=== PATIENT | male | born 1940 | race Caucasian/White ===

== ENCOUNTER → 2017-12-03 | Outpatient (CLI) | payer OTHER, MEDICARE ==
--- NOTE | 2017-12-03 13:54 | RAD ---
PA AND LATERAL VIEWS OF THE CHEST: HISTORY: Dyspnea. FINDINGS: Comparison is made with the exam of 01/28/17. The heart size is normal. Changes of COPD are again seen. No confluent areas of consolidation, pneu mothorax, or pleural effusions are identified. There are degenerative changes in the spine. Postop changes and metallic hardware in the left proximal humerus are again seen. IMPRESSION: No radiographic evidence of acute cardiopulmonary process. POS: [facility]
== END ==
LOC: RAD 10:26
PROVIDERS: ATTEND Internal Medicine
DX: R06.00 Dyspnea, unspecified (principal)
CPT/HCPCS: 71046

== ENCOUNTER 2018-09-16 10:40 | Inpatient (IN) | payer MEDICARE, OTHER ==
[2018-09-16 11:09] LABS: #Basophils 0.1 thou/uL (0.0-0.2); #Eosinphils 0.6 thou/uL (0.0-0.7); #Lymphocytes 1.9 thou/uL (1.20-3.40); #Monocytes 0.6 thou/uL (0.11-0.59); #Neutrophils 7.8 thou/uL (1.40-6.50); %Basophils 0.7 % (0.0-1.0); %Eosinophils 5.1 % (0.0-10.0); %Lymphocytes 17.8 % (21.0-51.0); %Monocytes 5.1 % (0.0-10.0); %Neutrophils 71.2 % (42.0-75.0); Hemoglobin 16.6 g/dL (14.0-18.0); Mean Corpuscular HGB CONC 32.2 g/dL (32.0-36.0); Mean Corpuscular Hemoglobin 30.2 pg (27.0-31.0); Mean Corpuscular Volume 93.8 fL (78.0-98.0); Mean Platelet Volume 7.7 fL (7.4-10.4); Platelet Count 326 thou/uL (130-400); RBC Distribution Width 13.9 % (11.5-14.5); Red Blood Cell (RBC) Count 5.51 mill/uL (4.70-6.10); White Blood Cell (WBC) Count 10.9 thou/uL (4.8-10.8)
[2018-09-16 11:32] LABS: ALT (SGPT) 23 U/L (8-55); AST (SGOT) 26 U/L (5-34); Albumin 4.3 g/dL (3.4-4.8); Alkaline Phosphatase 104 U/L (40-150); Anion Gap 19 mmol/L (10-20); BUN (Urea Nitrogen) 27 mg/dL (8.4-25.7); Bilirubin, Total 0.8 mg/dL (0.2-1.2); Calc. Creatinine Clearance 0 mL/min (70-130); Calcium 10.3 mg/dL (7.8-10.44); Carbon Dioxide 24 mmol/L (23-31); Chloride 99 mmol/L (98-107); Estimated GFR-MDRD 51; Globulin 2.6 g/dL (2.4-3.5); Glucose 79 mg/dL (83-110); Potassium 5.2 mmol/L (3.5-5.1); Protein, Total 6.9 g/dL (5.8-8.1); Sodium 137 mmol/L (136-145)
--- NOTE | 2018-09-16 11:41 | RAD ---
TWO VIEW CHEST SERIES: Comparison: 12-03-17 FINDINGS: Lungs are hyperinflated with interstitial prominence. Cardiac silhouette is normal in size. There is vascular calcification. Osseous degenerative changes and thoracic kyphosis are similar. IMPRESSION: 1. COPD. 2. No significant interval change. POS: [facility]
[2018-09-16] MEDS ORDERED: methylPREDNISolone Sod Succ/PF 125 MG/2 ML VIAL ONE (11:50)
[2018-09-16] MEDS ORDERED: Azithromycin 500 MG VIAL ONE (11:52)
[2018-09-16] MEDS ORDERED: Zolpidem Tartrate 5 MG TAB PO PRN (20:21)
[2018-09-16] MEDS ORDERED: Ondansetron PF 4 MG/2 ML Vial IVP PRN (20:21)
[2018-09-16] MEDS ORDERED: Acetaminophen 325 MG TAB PO PRN (20:21)
[2018-09-16] MEDS ORDERED: ALPRAZolam 0.25 MG TAB PO PRN (20:23)
--- NOTE | 2018-09-16 20:38 | PDOC.EVN ---
Event Note - Event Note Event Note: H&P [id number]
--- NOTE | 2018-09-16 21:04 | HP ---
CHIEF COMPLAINT: Shortness of breath. HISTORY OF PRESENT ILLNESS: This is a 78-year-old male, complaining of shortness of breath and hypoxia. The patient states that he has been having worsening shortness of breath for the past week and decided to come in. The patient states that he used to smoke a long time ago and was born with asthma; however, has not smoked in the recent years. Does not use oxygen at home at this point in time; however, does state that he has qualified in the past for p.r.n. oxygen. The patient stated that he had DuoNeb inhalers at home, which he used and did not help. The patient states that he otherwise has no other associated complaints at this point in time. Does admit to dyspnea on exertion as well as improvement upon rest. The patient otherwise was stable. No complaints at this point in time. The patient did receive DuoNeb and steroids as well as supplemental oxygen in the ER and stated that this helped him tremendously. The patient is seen and examined in the ER. No family at bedside. All questions answered. ALLERGIES: NO KNOWN DRUG ALLERGIES. MEDICATIONS: See MAR. REVIEW OF SYSTEMS: All systems reviewed, pertinent positives in HPI, otherwise negative. FAMILY HISTORY: Positive for diabetes and hypertension. SOCIAL HISTORY: Prior smoker. Social drinker. PHYSICAL EXAMINATION: VITAL SIGNS: Blood pressure was 135/88, respiratory rate of 20, O2 saturations of 100% on 3 L nasal cannula, and temperature of 98. GENERAL: The patient lying in bed with no acute discomfort. Occasionally coughing. HEENT: Pupils are equal, round, reactive to light and accommodation. Extraocular muscles intact. Oral cavity moist and pink. NECK: Supple, mobile, and nontender. Thyroid appreciated. RESPIRATORY: Reveals bilateral lower extremity inspiratory crackles, otherwise rest of the lung exam is clear to auscultation. Slight increase in AP diameter with mild respiratory distress. CARDIOVASCULAR: Reveals S1 and S2. Faint ejection murmur as well as a regular rate and rhythm. ABDOMEN: Positive bowel sounds. Soft, nontender, and nondistended. EXTREMITIES: Reveals trace edema. 2+ peripheral pulses. NEUROLOGIC: Cranial nerves 2 through 12 intact. No loss of motor or sensory function. LABORATORY DATA: CBC within normal limits. Basic metabolic panel within normal limits, albeit for creatinine being 1.35 and potassium of 3.2. The patient also had a chest x-ray done in the ER, which showed COPD changes, otherwise no acute cardiopulmonary process noted. ASSESSMENT: 1. Chronic obstructive pulmonary disease. 2. Hypertension. 3. Shortness of breath. 4. Anxiety. 5. Coronary artery disease. 6. Benign prostatic hyperplasia. PLAN: At this point in time, admit the patient hospital. Provide him with Rocephin or azithromycin. We will also do Solu-Medrol and steroids. Continue home medications as appropriate. Targeted systolic blood pressure 120 to 140. The patient wishes to remain a full code. Case and plan discussed with the patient at length. He understood and agreed to this plan. Job ID: [id number]
[2018-09-16] MEDS: Heparin 5,000 UNITS/ML VIAL SC SCH (23:35)
[2018-09-16] MEDS: cefTRIAXone\\ROCEPHIN 1 GM in Sodium Chloride 0.9% 100 ML IVPB SCH (23:35)
[2018-09-17] MEDS: methylPREDNISolone Sod Succ 40 MG VIAL IVP SCH ×4 (00:55→17:52)
[2018-09-17] MEDS ORDERED: Benzonatate 100 MG CAP PO PRN (04:02)
[2018-09-17 04:46] LABS: #Lymphocytes 0.7 thou/uL (1.20-3.40); #Monocytes 0.2 thou/uL (0.11-0.59); #Neutrophils 9.2 thou/uL (1.40-6.50); %Eosinophils 0.1 % (0.0-10.0); %Monocytes 1.8 % (0.0-10.0); %Neutrophils 91.1 % (42.0-75.0); Hemoglobin 14.6 g/dL (14.0-18.0); Mean Corpuscular HGB CONC 31.8 g/dL (32.0-36.0); Mean Corpuscular Hemoglobin 30.1 pg (27.0-31.0); Mean Corpuscular Volume 94.5 fL (78.0-98.0); Mean Platelet Volume 7.8 fL (7.4-10.4); Platelet Count 271 thou/uL (130-400); Red Blood Cell (RBC) Count 4.87 mill/uL (4.70-6.10); White Blood Cell (WBC) Count 10.1 thou/uL (4.8-10.8)
[2018-09-17 04:57] LABS: Anion Gap 14 mmol/L (10-20); BUN (Urea Nitrogen) 41 mg/dL (8.4-25.7); Calc. Creatinine Clearance 0 mL/min (70-130); Calcium 9.7 mg/dL (7.8-10.44); Carbon Dioxide 25 mmol/L (23-31); Chloride 103 mmol/L (98-107); Estimated GFR-MDRD 38; Glucose 235 mg/dL (83-110); Potassium 4.5 mmol/L (3.5-5.1); Sodium 137 mmol/L (136-145)
[2018-09-17 06:12] VITALS: BMI 27.1
[2018-09-17] MEDS: Finasteride 5 MG TAB PO SCH (09:13)
[2018-09-17] MEDS: Tamsulosin HCl 0.4 MG CAP PO SCH (09:13)
[2018-09-17] MEDS: Heparin 5,000 UNITS/ML VIAL SC SCH ×2 (09:13→21:45)
[2018-09-17] MEDS: Aspirin 81 mg Enteric Coated Tablet PO SCH (09:13)
[2018-09-17] MEDS: Amlodipine 5 MG TAB PO SCH (09:14)
[2018-09-17] MEDS: Azithromycin 500 MG in Sodium Chloride 0.9% 250 ML 250 ML IVPB SCH (13:33)
--- NOTE | 2018-09-17 13:38 | PDOC.PN ---
- Subjective Encounter Start Date: 09/17/18 Encounter Start Time: 13:36 Mr. Lin was seen today in follow-up of COPD exacerbation. He says he is feeling a little better, but when he walks he still gets very winded. He also informs be that his symptoms can be very labile. - Objective Resuscitation Status - Order Detail: 09/16/18 20:21 Resuscitation Status Routine Resuscitation Status: FULL: Full Resuscitation Discussed with: patient MAR Reviewed: Yes Vital Signs & Weight: Vital Signs (12 hours) Temp Pulse Resp BP Pulse Ox 09/17/18 12:00 97.6 F 83 18 156/72 H 94 L 09/17/18 09:14 82 09/17/18 08:00 98.4 F 82 18 168/71 H 92 L 09/17/18 04:00 97.7 F 71 16 138/64 93 L Weight Weight 178 lb 8 oz I&O: 09/16/18 09/17/18 09/18/18 06:59 06:59 06:59 Intake Total 300 Balance 300 Result Diagrams: 09/17/18 04:30 09/17/18 04:30 Phys Exam - Physical Examination HEENT: PERRLA Respiratory: wheezing present decreased air movement Cardiovascular: RRR, no significant murmur, no rub Gastrointestinal: soft, non-tender, no distention, positive bowel sounds Musculoskeletal: edema present trace pedal edema bilaterally Dx/Plan (1) Acute and chronic respiratory failure Code(s): J96.20 - ACUTE AND CHR RESP FAILURE, UNSP W HYPOXIA OR HYPERCAPNIA Status: Acute (2) COPD exacerbation Code(s): J44.1 - CHRONIC OBSTRUCTIVE PULMONARY DISEASE W (ACUTE) EXACERBATION Status: Acute (3) Hypertension Code(s): I10 - ESSENTIAL (PRIMARY) HYPERTENSION Status: Chronic (4) CAD (coronary artery disease) Code(s): I25.10 - ATHSCL HEART DISEASE OF [place] CORONARY ARTERY W/O ANG PCTRS Status: Chronic - Plan * COPD exacerbation- slightly improved- will continue the current regimen * Will consult his Assembler Installer Structures for further recommendations * CAD- stable * HTN- blood pressure is a bit elevated- he attributes this to the COPD exacerbation- will continue his home medications and add Hydralazine as needed.
[2018-09-17] MEDS ORDERED: hydrALAZINE 25 MG TAB PO PRN (13:43)
--- NOTE | 2018-09-17 17:11 | CON ---
DATE OF CONSULTATION: HISTORY OF PRESENT ILLNESS: This is a 78-year-old gentleman, who sees Dr. Gee, come to the hospital with several day history of increasing shortness of breath, cough, and some wheezing. He states at most days he can barely walk even 50 feet without getting markedly short of breath. Former smoker, quit smoking 5 years ago. Denies any chest pain, chills, or sweats. PAST MEDICAL HISTORY: Pertinent for end-stage COPD, former smoker, hypertension, and reflux. PAST SURGICAL HISTORY: Previous surgeries, appendix and left shoulder surgery. MEDICATIONS: Chronic medications from home includes; 1. DuoNeb. 2. Aspirin. 3. Amlodipine 5. 4. Albuterol inhaler. 5. Xanax 0.5. FAMILY HISTORY: Unremarkable. ALLERGIES: NONE. SOCIAL HISTORY: Tobacco as noted. Alcohol none. REVIEW OF SYSTEMS: Otherwise, 10-point negative. PHYSICAL EXAMINATION: GENERAL: In mild distress. VITAL SIGNS: Respirations are 18, pulse 73, temperature 97, saturations 94% on room air, and blood pressure 156/72. CHEST: Barrel-shaped, decreased breath sounds. No wheezing. CARDIAC: Sinus tach. ABDOMEN: Soft without masses. LABORATORY DATA: White count 10,000 and H and H are 14 and 46, and platelet count is normal. Creatinine 1.74. Chest x-ray shows hyperinflation. No acute infiltrate. IMPRESSION: Chronic obstructive pulmonary disease exacerbation, bronchitis, former smoker, azotemia, and hypertension. PLAN: I agree with present treatment at [facility]. Discontinue steroids and neb treatment. We will notify Dr. Gee. Consultation note, 70 minutes, 50% in direct patient care. Job ID: [id number]
[2018-09-17] MEDS: Mometasone/Formoterol 120 PUFF INHALER INH SCH (18:32)
[2018-09-17] MEDS: cefTRIAXone\\ROCEPHIN 1 GM in Sodium Chloride 0.9% 100 ML IVPB SCH (21:39)
[2018-09-18] MEDS: methylPREDNISolone Sod Succ 40 MG VIAL IVP SCH ×3 (01:09→11:51)
[2018-09-18] MEDS: Mometasone/Formoterol 120 PUFF INHALER INH SCH (06:52)
[2018-09-18] MEDS: Aspirin 81 mg Enteric Coated Tablet PO SCH (09:15)
[2018-09-18] MEDS: Amlodipine 5 MG TAB PO SCH (09:15)
[2018-09-18] MEDS: Finasteride 5 MG TAB PO SCH (09:18)
[2018-09-18] MEDS: Heparin 5,000 UNITS/ML VIAL SC SCH (09:18)
[2018-09-18] MEDS: Tamsulosin HCl 0.4 MG CAP PO SCH (09:19)
[2018-09-18 10:51] LABS: Anion Gap 10 mmol/L (10-20); BUN (Urea Nitrogen) 35 mg/dL (8.4-25.7); Calc. Creatinine Clearance 54 mL/min (70-130); Calcium 9.8 mg/dL (7.8-10.44); Carbon Dioxide 29 mmol/L (23-31); Chloride 105 mmol/L (98-107); Estimated GFR-MDRD 55; Glucose 140 mg/dL (83-110); Potassium 4.4 mmol/L (3.5-5.1); Sodium 140 mmol/L (136-145)
[2018-09-18] MEDS: Azithromycin 500 MG in Sodium Chloride 0.9% 250 ML 250 ML IVPB SCH (13:17)
--- NOTE | 2018-09-18 15:08 | PDOC.PN ---
- Subjective Encounter Start Date: 09/18/18 Encounter Start Time: 15:07 Mr. Lin was seen today in follow-up of COPD exacerbation. He feels he is breathing a bit better. He has walked in the halls without difficulty. - Objective Resuscitation Status - Order Detail: 09/16/18 20:21 Resuscitation Status Routine Resuscitation Status: FULL: Full Resuscitation Discussed with: patient MAR Reviewed: Yes Vital Signs & Weight: Vital Signs (12 hours) Temp Pulse Resp BP BP Pulse Ox 09/18/18 12:00 97.9 F 70 20 162/74 H 94 L 09/18/18 09:15 74 155/70 H 09/18/18 08:00 97.8 F 74 20 155/70 H 94 L 09/18/18 06:53 93 L 09/18/18 06:52 73 16 93 L 09/18/18 04:00 97.4 F L 68 16 132/69 94 L Weight Weight 178 lb 8 oz I&O: 09/17/18 09/18/18 09/19/18 06:59 06:59 06:59 Intake Total 300 1500 Balance 300 1500 Result Diagrams: 09/17/18 04:30 09/18/18 10:24 Phys Exam - Physical Examination HEENT: PERRLA Respiratory: no wheezing, no rales, no rhonchi, clear to auscultation bilateral Cardiovascular: RRR, no significant murmur, no rub Gastrointestinal: soft, non-tender, no distention, positive bowel sounds Musculoskeletal: no edema Dx/Plan (1) Acute and chronic respiratory failure Code(s): J96.20 - ACUTE AND CHR RESP FAILURE, UNSP W HYPOXIA OR HYPERCAPNIA Status: Acute (2) COPD exacerbation Code(s): J44.1 - CHRONIC OBSTRUCTIVE PULMONARY DISEASE W (ACUTE) EXACERBATION Status: Acute (3) Hypertension Code(s): I10 - ESSENTIAL (PRIMARY) HYPERTENSION Status: Chronic (4) CAD (coronary artery disease) Code(s): I25.10 - ATHSCL HEART DISEASE OF [place] CORONARY ARTERY W/O ANG PCTRS Status: Chronic - Plan * Acute on chronic respiratory failure due to COPD exacerbation- continue Steroids, duonebs, and Dulera * Continue Azithromycin and Rocephin * Await further recommendations from Dr. Gee. * HTN- blood pressure is a bit elevated- patient says he does not take Amlodipine however- ? home medication * Renal function is better today
[2018-09-18 16:25] VITALS: BP 119/58; TEMP 97.8
--- NOTE | 2018-09-18 18:19 | PRG ---
DATE OF SERVICE: 09/18/2018 SUBJECTIVE: Mr. Lin did well overnight. He is in no distress. He says he is back near his baseline. He hates being in the hospital. OBJECTIVE: VITAL SIGNS: His vital signs are stable. LUNGS: His lungs are actually clear. HEART: Regular rhythm, S1 and S2 are normal. ABDOMEN: Soft and nontender. EXTREMITIES: Without edema. IMPRESSION: 1. Chronic obstructive pulmonary disease exacerbation. 2. Bronchitis. PLAN: I think it is reasonable for him to go home. I wrote a prescription for Ceftin 250 b.i.d. for seven days and prednisone 20 mg tablets to take two tablets for 5 days and one tablet for 8 days and then half tablet for 8 more days after that. I have asked him to call my office and make an appointment for 2-3 weeks from now. I have refilled his prescription for his ipratropium and albuterol for his nebulizer and written the prescription q.4 hours, so have enough for the bad days if he has to use more than just four times a day by mouth. Job ID: [id number]
--- NOTE | 2018-09-19 03:02 | DIS ---
DATE OF ADMISSION: 09/16/2018 DATE OF DISCHARGE: 09/18/2018 DISCHARGE DISPOSITION: Home. PRIMARY DISCHARGE DIAGNOSES: 1. Chronic obstructive pulmonary disease exacerbation. 2. Acute on chronic respiratory failure secondary to #1. 3. Hypertension. 4. Benign prostatic hyperplasia. DISCHARGE MEDICATIONS: Include; 1. Ceftin 250 mg twice daily. 2. Aspirin 81 mg daily. 3. Alprazolam 0.25 mg t.i.d. as needed. 4. Ventolin inhaler 2 puffs q.6h as needed. CODE STATUS: Full code. ALLERGIES: NO KNOWN DRUG ALLERGIES. HOSPITAL COURSE: Mr. Lin is a pleasant 78-year-old gentleman who presented to the emergency room complaining of shortness of breath. He has a history of COPD. He was evaluated in the ER and found to be in COPD exacerbation. Chest x-ray was negative for any infiltrates. He was admitted, started on empiric antibiotics as well as DuoNebs and steroids and a long-acting beta agonist. He improved over the course of the next couple of days. He was also seen by his tractor sweeper operator as well. No significant changes were made in his medications and after he was stabilized, he was able to be discharged home and to have close outpatient followup with his tractor sweeper operator as well as his primary care physician in 1 to 2 weeks. Job ID: [id number]
== END 2018-09-18 16:35 | disposition home or self-care (01) | DRG 190 ==
LOC: ERS 10:40 → ERHOLD 17:08 → OBSVTOIN 17:08 → ONC 09-17 00:26
PROVIDERS: ADMIT Family Medicine; ATTEND Family Medicine
DX: J44.1 Chronic obstructive pulmonary disease with (acute) exacerbation (principal); J96.20 Acute and chronic respiratory failure, unspecified whether with hypoxia or hypercapnia; I10 Essential (primary) hypertension; F41.9 Anxiety disorder, unspecified; I25.10 Atherosclerotic heart disease of native coronary artery without angina pectoris; N40.0 Benign prostatic hyperplasia without lower urinary tract symptoms; K21.9 Gastro-esophageal reflux disease without esophagitis; R79.89 Other specified abnormal findings of blood chemistry; Z87.891 Personal history of nicotine dependence; Z98.890 Other specified postprocedural states
CPT/HCPCS: 36415; 71046; 80048; 80053; 83880; 84484; 85025; 93005; 94640; 96365; 96366; 96375; J0456; J0696; J1644; J2920; J2930; J7050; J7620

== ENCOUNTER 2018-10-04 15:53 | Inpatient (IN) | payer MEDICARE ==
--- NOTE | 2018-10-04 16:19 | RAD ---
FRadiograph chest one view: 10/04/2018 HISTORY: 78-year-old male with cough and dyspnea. Sepsis alert. COMPARISON: 09/16/2018 FINDINGS: Hyperinflation of the lungs. Hyperlucency of upper and midlung zones. These represent COPD. No cardio megaly. No focal infiltrate or pneumothorax. No interval change. IMPRESSION: 1. Emphysema. 2. No evidence of acute pneumonia
[2018-10-04] MEDS ORDERED: Azithromycin 250 MG TAB ONE (16:28)
[2018-10-04] MEDS ORDERED: Magnesium 2 GM/50 ML BAG (IN WATER) ONE (16:28)
[2018-10-04 16:29] LABS: #Eosinphils 0.2 thou/uL (0.0-0.7); #Lymphocytes 1.2 thou/uL (1.20-3.40); #Monocytes 0.9 thou/uL (0.11-0.59); #Neutrophils 14.6 thou/uL (1.40-6.50); %Basophils 0.2 % (0.0-1.0); %Eosinophils 1.3 % (0.0-10.0); %Lymphocytes 7.3 % (21.0-51.0); %Monocytes 5.5 % (0.0-10.0); %Neutrophils 85.8 % (42.0-75.0); Mean Corpuscular HGB CONC 31.7 g/dL (32.0-36.0); Mean Corpuscular Hemoglobin 31.1 pg (27.0-31.0); Mean Corpuscular Volume 98.1 fL (78.0-98.0); Mean Platelet Volume 7.7 fL (7.4-10.4); Platelet Count 272 thou/uL (130-400); RBC Distribution Width 14.4 % (11.5-14.5); Red Blood Cell (RBC) Count 5.16 mill/uL (4.70-6.10)
[2018-10-04] MEDS ORDERED: Azithromycin 500 MG VIAL ONE (16:30)
[2018-10-04] MEDS ORDERED: Albuterol Sulfate 2.5 mg/0.5 ml Neb ONE ×2 (16:34)
[2018-10-04] MEDS ORDERED: Lorazepam 2 MG/ML VIAL ONE (16:38)
[2018-10-04 16:46] LABS: Bilirubin Small (Negative); Blood, Urine Large (Negative); Clarity CLEAR (Clear); Glucose, Urine (Dipstick) Negative (Negative); Leukocyte Small (Negative); Nitrite Negative (Negative); Protein, Urine (Dipstick) 100 mg/dL (Neg-Trace); Specific Gravity, Urine 1.027 (1.002-1.036)
[2018-10-04 16:48] LABS: Bacteria/HPF None Seen HPF (None Seen); Hyaline Casts/LPF 4-6 HYALINE CAST LPF (0-3 Hyaline); Pathc Cast-AUWi Flag 0.54 (0-2.49); Squamous Epithelial 0-3 HPF (0-3)
[2018-10-04 16:50] LABS: Base Excess-Venous -1.6 mmol/L (-2.0 to 3.0); Bicarbonate (HCO3v) 27.7 mmol/L (22.0-28.0); CO2 Tension (PvCO2) 62.4 mmHg (40.0-50.0); Calcium, Ionized 1.27 mmol/L (See Comments:); Chloride 102 mmol/L (98-107); Hemoglobin - Calc 18.8 g/dL (14.0-18.0); O2 Tension (PvO2) 24.3 mmHg (35.0-45.0); Potassium 4.9 mmol/L (3.5-5.1); Sodium 137 mmol/L (138-145); T. Carbon Dioxide 29.6 mmol/L (22.0-28.0); pH (Venous) 7.255 (7.320-7.430); vO2 Saturation-calc 33.3 % (60.0-85.0)
[2018-10-04 16:51] LABS: ALT (SGPT) 29 U/L (8-55); AST (SGOT) 18 U/L (5-34); Albumin 4.1 g/dL (3.4-4.8); Alkaline Phosphatase 85 U/L (40-150); Anion Gap 18 mmol/L (10-20); BUN (Urea Nitrogen) 19 mg/dL (8.4-25.7); Bilirubin, Total 1.2 mg/dL (0.2-1.2); Calc. Creatinine Clearance 0 mL/min (70-130); Calcium 10.4 mg/dL (7.8-10.44); Carbon Dioxide 25 mmol/L (23-31); Chloride 99 mmol/L (98-107); Estimated GFR-MDRD 68; Globulin 3.5 g/dL (2.4-3.5); Glucose 82 mg/dL (83-110); Potassium 5.2 mmol/L (3.5-5.1); Protein, Total 7.6 g/dL (5.8-8.1); Sodium 137 mmol/L (136-145)
[2018-10-04] MEDS ORDERED: Cefepime 2 GM VIAL ONE (17:02)
[2018-10-04 17:06] LABS: Transitional Epithelial 0-3 HPF (0-3)
[2018-10-04] MEDS ORDERED: Rocuronium Bromide 10 MG/ML (10ML VIAL) ONE (17:24)
[2018-10-04] MEDS ORDERED: Ketamine 50 MG/ML (10ML VIAL) ONE (17:24)
[2018-10-04] MEDS ORDERED: fentaNYL Citrate/PF 2,000 MCG in Sodium Chloride 0.9% 60 ML IV SCH (17:24)
[2018-10-04] MEDS ORDERED: methylPREDNISolone Sod Succ/PF 125 MG/2 ML VIAL ONE (17:26)
[2018-10-04] MEDS ORDERED: Fentanyl 100 MCG/2 ML VIAL ONE (17:37)
[2018-10-04 18:03] LABS: Analyzer IN Cardio ER; Base Excess (BEa) -9.3 mEq/L (-2.0 to +3.0); Calcium, Ionized 1.29 mmol/L (1.12-1.30); Carboxyhemoglobin (COHb) 1.3 gm% (0.0-3.0); Hemoglobin (Hb) 15.6 g/dL (14.0-18.0); Potassium - ABG Lab 4.46 mmol/L (3.70-5.30)
--- NOTE | 2018-10-04 18:03 | RAD ---
FRadiograph chest one view: 10/04/2018 Time: 5:42 PM Streaky: Status post intubation in 78-year-old male COMPARISON: 10/04/2018 at 4:06 PM FINDINGS: Endotracheal tube has been placed into the mid thoracic trachea. Enteric tube has been placed into th e esophagus and stomach, distal tip outside of the field of view. Nonspecific mildly increased attenu ation at left lung base, new or greater than on prior study. Rest of the lungs are grossly clear. Hyp erinflation consistent with COPD. No pneumothorax. IMPRESSION: 1. Interval intubation and esophagogastric tube placement. 2. Emphysema. 3. Nonspecific mild haziness at the left base.
[2018-10-04 18:04] LABS: CO2 Tension 92.8 mmHg (35.0-45.0); O2 Tension (PaO2) 45.8 mmHg (> 70.0); pH, Arterial 7.03 (7.35-7.45)
[2018-10-04 18:48] LABS: Troponin I 0.012 ng/mL (< 0.028)
[2018-10-04] MEDS ORDERED: Acetaminophen 650 MG Suppository PR PRN (18:56)
[2018-10-04] MEDS ORDERED: Bisacodyl 10 MG SUPP PR PRN (18:56)
[2018-10-04] MEDS ORDERED: CCU Electrolyte Replacement 1 EACH IVPB ONE (19:04)
[2018-10-04] MEDS ORDERED: Norepinephrine 8 MG/0.9% NS 250 ML IVPB PRN (19:04)
[2018-10-04] MEDS ORDERED: hydrALAZINE 20 MG/ML VIAL SLOW IVP PRN (19:06)
[2018-10-04 19:09] LABS: Actual Bicarbonate (HCO3a) 19.1 mEq/L (22-28); Analyzer IN Cardio ER; Base Excess (BEa) -7.7 mEq/L (-2.0 to +3.0); CO2 Tension 43.5 mmHg (35.0-45.0); Calcium, Ionized 1.17 mmol/L (1.12-1.30); Carboxyhemoglobin (COHb) 0.8 gm% (0.0-3.0); Hemoglobin (Hb) 14.5 g/dL (14.0-18.0); Potassium - ABG Lab 4.01 mmol/L (3.70-5.30); Puncture Site RRA; pH, Arterial 7.26 (7.35-7.45)
[2018-10-04 19:10] LABS: ALV-art Gradient 123.325 (0-20)
[2018-10-04] MEDS ORDERED: Potassium Phosphate 12 MMOL in Sodium Chloride 0.9% 250 ML 250 ML IV PRN (19:16)
[2018-10-04] MEDS ORDERED: Potassium Chloride 40 MEQ in Sodium Chloride 0.9% 250 ML 250 ML IVPB PRN (19:16)
[2018-10-04] MEDS ORDERED: Potassium Phosphate 9 MMOL in Sodium Chloride 0.9% 100 ML IVPB PRN (19:16)
[2018-10-04] MEDS ORDERED: Potassium Phosphate 15 MMOL in Sodium Chloride 0.9% 250 ML 250 ML IV PRN (19:16)
[2018-10-04] MEDS ORDERED: Magnesium Oxide 400 MG TAB PO PRN ×2 (19:16)
[2018-10-04] MEDS ORDERED: PHOS-NAK 1 PKT PACK PO PRN ×2 (19:16)
[2018-10-04] MEDS ORDERED: Potassium Chloride 20 MEQ TAB PO PRN (19:16)
[2018-10-04] MEDS ORDERED: CCU ELECTROLYTE REPLACEMENT PROTOCOL FS PRN (19:16)
[2018-10-04] MEDS ORDERED: Magnesium 2 GM/50 ML 2 GM in Premix Bag 1 BAG IVPB PRN (19:16)
[2018-10-04] MEDS ORDERED: Potassium Chloride 40 MEQ in Premix Bag 1 BAG IVPB PRN (19:16)
[2018-10-04] MEDS ORDERED: Morphine 4 MG/ML VIAL ONE (19:43)
--- NOTE | 2018-10-04 19:54 | HP ---
PRIMARY CARE PROVIDER: None. Please note that Mr. Lin was seen by Dr. Ross, Dr. Townsend, and Dr. Tran in the past, but his daughter reports that he currently does not have a primary care provider. AUTOMOBILE TESTER: Dr. Gee. CHIEF COMPLAINT: Shortness of breath. HISTORY OF PRESENT ILLNESS: Mr. Lin is a pleasant 78-year-old gentleman, who was seen at [facility] on 10/04/2018. He was hospitalized at this facility from September 16 to of this year for COPD exacerbation and acute on chronic respiratory failure. Mr. Lin is currently intubated and mechanically ventilated, unable to provide any history. History was obtained from his daughter by the bedside. The patient's son, who is the medical power of corporate attorney, is on his way here from a different city. Following discharge, Mr. Lin was reportedly doing well. However, over the last few days, he has had cough, more than usual. The patient did not report to his family that he was feeling unwell. He reportedly had yellow sputum. He has been having generalized weakness as well, which he did not report to his family. He sought medical help today because of ongoing shortness of breath and cough. In the emergency room, he was found to be in acute on chronic respiratory failure by the emergency room physician. The patient was intubated after the emergency room physician discussed with the patient's son. REVIEW OF SYSTEMS: Could not be obtained. PAST MEDICAL HISTORY: COPD, anxiety, benign prostate hyperplasia, hypertension, and allergic rhinitis. PAST SURGICAL HISTORY: Appendectomy, left humeral fracture, and rib fracture. SOCIAL HISTORY: The patient is an ex-smoker, he quit smoking 5 years ago. He uses alcohol 2 times a week. No history of recreational drug use. FAMILY HISTORY: Significant for diabetes mellitus and hypertension. ALLERGIES: NO KNOWN DRUG ALLERGIES. CURRENT MEDICATIONS: 1. Aspirin 81 mg daily. 2. Alprazolam 0.25 mg 3 times a day as needed. 3. Ventolin inhaler 2 puffs every 6 hours as needed. PHYSICAL EXAMINATION: GENERAL: On examination, Mr. Lin is intubated and mechanically ventilated. VITAL SIGNS: Blood pressure is 176/91, pulse 97, respiratory rate 18, and oxygen saturation 100% on ventilator. Critical temperature is 99.3 degrees Fahrenheit. EYES: No scleral icterus, no conjunctival pallor. Pupils are 4 mm bilaterally, reactive to light. ENT: Endotracheal tube in place. NECK: No cervical lymphadenopathy. RESPIRATORY: Accessory muscles of breathing are not active. Chest wall movements are symmetric bilaterally. He has diffuse expiratory wheeze. CARDIOVASCULAR: S1 and S2 are heard, regular. Peripheral pulses palpable. No carotid bruit. No pericardial rub. ABDOMEN: Soft, nontender, bowel sounds heard. NEUROLOGIC: Full neurologic examination not possible secondary to the patient's noncooperation. Pupils as described earlier. There is no facial droop. MUSCULOSKELETAL: The patient is moving extremities and responds to painful stimuli. SKIN: No rashes or subcutaneous nodules. LYMPHATIC: No cervical lymphadenopathy. PSYCHIATRIC: Unable to assess mood, affect, or orientation to person, place, or time. LABORATORY DATA: Mr. Lin's labs and investigations were reviewed. A 12-lead electrocardiogram shows sinus tachycardia, no ST changes to suggest an acute coronary syndrome. He also had a chest x-ray, which shows emphysema and nonspecific mild haziness at the left base, according to radiologist. He has leukocytosis with 17,000 white cells, of which 85.8% are neutrophils, normal hemoglobin, normal platelet count, normal sodium, normal potassium, normal creatinine, unremarkable liver profile, elevated lactic acid level of 3.2, normal troponin I x2, urinalysis that is positive for small amount of leukocyte esterase, negative for nitrite, and arterial blood gases showing pH of 7.03, pCO2 of 92.8, and pO2 of 45.8. ASSESSMENT AND PLAN: Mr. Lin is a 78-year-old gentleman, who was seen at [facility] on October 04, 2018. His problem list includes: 1. Acute on chronic respiratory failure with hypoxia and hypercapnia: Mr. Lin is currently intubated and mechanically ventilated. He will be admitted to the CCU. Pulmonary and Critical Care Medicine Service has been notified by emergency room physician. Most likely etiology of respiratory failure is chronic obstructive pulmonary disease exacerbation. 2. Chronic obstructive pulmonary disease exacerbation: Mr. Lin will be treated with oxygen, steroids, bronchodilators, and antibiotics. 3. Hypertension: We will add p.r.n. hydralazine for blood pressure spikes, we will monitor vital signs and titrate antihypertensives as needed. 4. Benign prostate hyperplasia: The patient is currently not on any medications for this. I will need to confirm with family and restart his medications. LEVEL OF RISK: Severe. LEVEL OF COMPLEXITY: Moderate. Job ID: [id number]
[2018-10-04 20:23] LABS: Lactic Acid 1.2 mmol/L (0.5-2.2)
[2018-10-04 20:37] LABS: Troponin I 0.032 ng/mL (< 0.028)
[2018-10-04] MEDS: Lactated Ringer's 1,000 ML IV SCH (21:36)
[2018-10-04] MEDS: methylPREDNISolone Sod Succ 40 MG VIAL IVP SCH (23:40)
[2018-10-05] MEDS: Cefepime 2 GM in Sodium Chloride 0.9% 100 ML IVPB SCH ×2 (05:21→17:44)
[2018-10-05] MEDS: Lactated Ringer's 1,000 ML IV SCH ×2 (05:24→15:23)
[2018-10-05] MEDS: methylPREDNISolone Sod Succ 40 MG VIAL IVP SCH ×4 (05:25→23:09)
[2018-10-05 05:29] LABS: #Lymphocytes 0.5 thou/uL (1.20-3.40); #Monocytes 0.1 thou/uL (0.11-0.59); #Neutrophils 12.5 thou/uL (1.40-6.50); %Basophils 0.1 % (0.0-1.0); %Lymphocytes 3.5 % (21.0-51.0); %Monocytes 1.1 % (0.0-10.0); %Neutrophils 95.2 % (42.0-75.0); Hemoglobin 13.2 g/dL (14.0-18.0); Mean Corpuscular HGB CONC 32.4 g/dL (32.0-36.0); Mean Corpuscular Hemoglobin 31.2 pg (27.0-31.0); Mean Corpuscular Volume 96.5 fL (78.0-98.0); Mean Platelet Volume 8.1 fL (7.4-10.4); Platelet Count 212 thou/uL (130-400); RBC Distribution Width 14.2 % (11.5-14.5); Red Blood Cell (RBC) Count 4.23 mill/uL (4.70-6.10); White Blood Cell (WBC) Count 13.2 thou/uL (4.8-10.8)
[2018-10-05 05:51] LABS: Anion Gap 17 mmol/L (10-20); BUN (Urea Nitrogen) 28 mg/dL (8.4-25.7); Calc. Creatinine Clearance 50 mL/min (70-130); Calcium 8.8 mg/dL (7.8-10.44); Carbon Dioxide 19 mmol/L (23-31); Chloride 106 mmol/L (98-107); Estimated GFR-MDRD 50; Glucose 96 mg/dL (83-110); Sodium 137 mmol/L (136-145)
[2018-10-05 06:33] VITALS: BMI 27.1
[2018-10-05 09:13] LABS: Actual Bicarbonate (HCO3a) 20.2 mEq/L (22-28); Base Excess (BEa) -3.8 mEq/L (-2.0 to +3.0); CO2 Tension 33.8 mmHg (35.0-45.0); Calcium, Ionized 1.22 mmol/L (1.12-1.30); Carboxyhemoglobin (COHb) 1.1 gm% (0.0-3.0); Hemoglobin (Hb) 13.1 g/dL (14.0-18.0); O2 Tension (PaO2) 69.4 mmHg (> 70.0); Potassium - ABG Lab 4.22 mmol/L (3.70-5.30)
[2018-10-05 09:20] LABS: Puncture Site RRA
[2018-10-05] MEDS: Enoxaparin Sodium 40 MG/0.4 ML SYRINGE SC SCH (13:35)
[2018-10-05] MEDS ORDERED: Azithromycin 500 MG in Sodium Chloride 0.9% 250 ML 250 ML IVPB SCH (17:00)
--- NOTE | 2018-10-05 17:58 | PDOC.PN ---
- Subjective Encounter Start Date: 10/05/18 Encounter Start Time: 09:40 Pt seen for followup re: acute respiratory failure with hypoxia and hypercapnia. Intubated but answering questions by nodding or shaking head and by writing. - Objective MAR Reviewed: Yes Vital Signs & Weight: Vital Signs (12 hours) Temp Pulse Resp BP Pulse Ox 10/05/18 16:00 98.8 F 93 L 10/05/18 13:50 80 21 H 96 10/05/18 13:34 66 21 H 97 10/05/18 12:00 98.6 F 23 H 10/05/18 11:21 72 136/66 10/05/18 10:00 22 H 10/05/18 08:00 98.8 F 22 H 95 10/05/18 07:55 68 108/61 10/05/18 07:51 63 25 H 97 10/05/18 06:00 22 H Weight Weight 183 lb 6.793 oz Most Recent Monitor Data Heart Rate from ECG 76 NIBP 132/72 NIBP BP-Mean 92 Respiration from ECG 25 SpO2 94 I&O: 10/04/18 10/05/18 10/06/18 06:59 06:59 06:59 Intake Total 1305 0 Output Total 818 330 Balance 487 -330 Result Diagrams: 10/05/18 04:48 10/05/18 04:48 EKG Reviewed by me: Yes (Tele: NSR) Phys Exam - Physical Examination Intubated HEENT: moist MMs ETT Respiratory: clear to auscultation bilateral Cardiovascular: RRR Gastrointestinal: soft Neurological: moves all 4 limbs Psychiatric: normal affect Dx/Plan (1) Acute on chronic respiratory failure with hypoxia and hypercapnia Code(s): J96.21 - ACUTE AND CHRONIC RESPIRATORY FAILURE WITH HYPOXIA; J96.22 - ACUTE AND CHRONIC RESPIRATORY FAILURE WITH HYPERCAPNIA Status: Acute Comment : Improved (2) COPD exacerbation Code(s): J44.1 - CHRONIC OBSTRUCTIVE PULMONARY DISEASE W (ACUTE) EXACERBATION Status: Acute Comment: continue oxygen, steroids, bronchodilators and antibiotics as below (3) Hypertension Code(s): I10 - ESSENTIAL (PRIMARY) HYPERTENSION Status: Chronic - Plan * . Review of Systems - Review of Systems Constitutional: negative: fever, chills, sweats, weakness, malaise Cardiovascular: negative: chest pain, palpitations, orthopnea, paroxysmal nocturnal dyspnea, edema, light headedness - Medications/Allergies Allergies/Adverse Reactions: Allergies Allergy/AdvReac Type Severity Reaction Status Date / Time No Known Allergies Allergy Verified 11/11/16 14:23 Medications: Current Medications Acetaminophen (Tylenol) 650 mg ME Q4H PRN PRN Reason: Headache/Fever/Mild Pain (1-3) Albuterol/Ipratropium (Duoneb) 3 ml NEB [id number] TIMI Last Admin: 10/05/18 13:34 Dose: 3 ml Albuterol/Ipratropium (Duoneb) 3 ml NEB [id number] PRN PRN Reason: SOB &/or Wheezing Bisacodyl (Dulcolax) 10 mg ME DAILYPRN PRN PRN Reason: Constipation Enoxaparin Sodium (Lovenox) 40 mg SC 0900 [facility] Last Admin: 10/05/18 13:35 Dose: 40 mg Hydralazine HCl (Apresoline) 10 mg SLOW IVP Q6H PRN PRN Reason: SBP Greater Than 170 Fentanyl Citrate 2,000 mcg/ (Sodium Chloride) 100 mls @ 0 mls/hr IV INF TIMI; Protocol Stop: 11/03/18 17:24 Cefepime HCl 2 gm/ Sodium (Chloride) 100 mls @ 200 mls/hr IVPB 0500,1700 TIMI Last Admin: 10/05/18 17:44 Dose: 100 mls Azithromycin 500 mg/ Sodium (Chloride) 250 mls @ 250 mls/hr IVPB 1700 TIMI Norepinephrine Bitartrate (Levophed) 250 mls @ 0 mls/hr IVPB PRN PRN; Protocol PRN Reason: To maintain MAP > 65 Potassium Chloride 40 meq/ (Sodium Chloride) 270 mls @ 135 mls/hr IVPB ASDIR PRN PRN Reason: FOR SERUM K+ 2.5 - 3.5 Potassium Chloride 40 meq/ (Device) 100 mls @ 50 mls/hr IVPB ASDIR PRN PRN Reason: FOR SERUM K+ 2.5 - 3.5 Magnesium Sulfate 1 gm/ Sodium (Chloride) 102 mls @ 102 mls/hr IV PRN PRN PRN Reason: MAG LEVEL 1.4 - 2.0 Magnesium Sulfate 2 gm/ Device 50 mls @ 50 mls/hr IVPB ASDIR PRN PRN Reason: MAGNESIUM < 1.4 Potassium Phosphate 9 mmol/ (Sodium Chloride) 103 mls @ 25.75 mls/hr IVPB ASDIR PRN PRN Reason: Phosphate 1.0-1.8 Potassium Phosphate 12 mmol/ (Sodium Chloride) 254 mls @ 63.5 mls/hr IV ASDIR PRN PRN Reason: Serum phosphate 0.5-0.9 Potassium Phosphate 15 mmol/ (Sodium Chloride) 255 mls @ 63.75 mls/hr IV ASDIR PRN PRN Reason: Serum Phos < 0.5 Lactated Ringer's (Lactated Ringer's) 1,000 mls @ 75 mls/hr IV .[id number] [facility] Last Admin: 10/05/18 15:23 Dose: 1,000 mls Magnesium Oxide (Magnesium Oxide) 400 mg PO BIDPRN PRN PRN Reason: FOR SERUM MAG 1.4 - 2.0 Magnesium Oxide (Magnesium Oxide) 800 mg PO PRN PRN PRN Reason: FOR SERUM MAG < 1.4 Methylprednisolone Sodium Succinate (Solu-Medrol) 40 mg IVP Q6HR [facility] Last Admin: 10/05/18 17:45 Dose: 40 mg Miscellaneous Medication (Phos-Nak) 1 pkt PO TIDPRN PRN PRN Reason: FOR PHOS LEVEL 1.0 - 1.8 Miscellaneous Medication (Phos-Nak) 2 pkt PO TIDPRN PRN PRN Reason: FOR PHOS LEVEL 0.5 - 1.0 Ccu Electrolyte (Replacement Protocol) 0 each FS PRN PRN PRN Reason: FOR ELECTROLYTE REPLACEMENT Potassium Chloride (K-Dur) 40 meq PO ASDIR PRN PRN Reason: FOR SERUM K+ 2.5 - 3.5 Potassium Chloride (Klor-Con) 40 meq PER TUBE ASDIR PRN PRN Reason: FOR SERUM K+ 2.5-3.5 Sodium Chloride (Flush - Normal Saline) 10 ml IVF Q12HR [facility] Last Admin: 10/05/18 13:16 Dose: 10 ml Sodium Chloride (Flush - Normal Saline) 10 ml IVF PRN PRN PRN Reason: Saline Flush
--- NOTE | 2018-10-05 21:02 | CON ---
DATE OF CONSULTATION: 10/05/2018 HISTORY OF PRESENT ILLNESS: Mr. Raj Lin is a very pleasant 78-year-old male, patient of mine who has severe chronic obstructive pulmonary disease. He presented to the emergency room short of breath on CPAP. He eventually required intubation. It is unclear whether or not he actually did not do well with the CPAP, because of the positive airway pressure, which led to a decline. In any event, he is awake, alert, and has a surprisingly short expiratory time. He wants the tube out, which I completely understand. He denies fever prior to this, but said he has had a cough and chest congestion for several days. PAST MEDICAL HISTORY: 1. Remarkable for anxiety. 2. BPH. 3. Hypertension. 4. Rhinitis. 5. Chronic obstructive pulmonary disease. 6. Status post hospitalization last month with chronic obstructive pulmonary disease exacerbation. 7. Status post hospitalization last summer with chronic obstructive pulmonary disease exacerbation. 8. Status post surgical repair of a humerus fracture in June 15. 9. Long history of tobacco use up to a pack a day. 10. History of BPH. 11. History of GI bleed in the past. 12. History of heavy alcohol use in the past. He is abstinent now, but he used to drink 20-30 beers a day. FAMILY HISTORY: Negative for lung disease in early age. Positive for diabetes hypertension. SOCIAL HISTORY: He is not smoking at this time and drinks anywhere near as about same and he is only drinking twice a week now. PHYSICAL EXAMINATION: GENERAL: He is in no distress. VITAL SIGNS: Heart rate 68, respiratory rate 21, oximetry is 97, blood pressure 143/101 earlier, blood pressure is 138/80 now. The computer is not capturing vital signs. Pupils are equal, sclerae is anicteric. He is awake, alert. He has excellent strength. NECK: Supple. LUNGS: Clear. HEART: Regular rhythm. S1, S2 normal. ABDOMEN: Soft and nontender. EXTREMITIES: Without clubbing, cyanosis or edema. LABORATORY DATA: White count 13.2, hemoglobin 13.2, platelets 212. Sodium 137, potassium 5, chloride 106, bicarb 19, BUN 28, creatinine 1.37. PH 7.4, CO2 of 33, PO2 69 now. PH 7.03, CO2 of 92 on BiPAP. IMPRESSION: Respiratory failure, [id number], clinically dramatically improved surprisingly with less than 24 hours mechanical ventilation. He may be a candidate for weaning. If he meets criteria after spontaneous breathing trial, he will be re-evaluated and hopefully extubated. CRITICAL CARE TIME: 30 minutes. Job ID: [id number] MTDD
[2018-10-06] MEDS: methylPREDNISolone Sod Succ 40 MG VIAL IVP SCH ×4 (05:02→23:03)
[2018-10-06] MEDS: Cefepime 2 GM in Sodium Chloride 0.9% 100 ML IVPB SCH (05:03)
[2018-10-06] MEDS: Lactated Ringer's 1,000 ML IV SCH (05:05)
[2018-10-06 05:50] LABS: #Lymphocytes 0.6 thou/uL (1.20-3.40); #Monocytes 0.3 thou/uL (0.11-0.59); #Neutrophils 10.8 thou/uL (1.40-6.50); %Basophils 0.1 % (0.0-1.0); %Eosinophils 0.1 % (0.0-10.0); %Lymphocytes 4.7 % (21.0-51.0); %Monocytes 2.5 % (0.0-10.0); %Neutrophils 92.7 % (42.0-75.0); Hemoglobin 12.4 g/dL (14.0-18.0); Mean Corpuscular HGB CONC 32.5 g/dL (32.0-36.0); Mean Corpuscular Hemoglobin 31.4 pg (27.0-31.0); Mean Corpuscular Volume 96.8 fL (78.0-98.0); Mean Platelet Volume 7.6 fL (7.4-10.4); Platelet Count 196 thou/uL (130-400); Red Blood Cell (RBC) Count 3.94 mill/uL (4.70-6.10); White Blood Cell (WBC) Count 11.7 thou/uL (4.8-10.8)
[2018-10-06 06:16] LABS: Anion Gap 11 mmol/L (10-20); BUN (Urea Nitrogen) 41 mg/dL (8.4-25.7); Calc. Creatinine Clearance 62 mL/min (70-130); Carbon Dioxide 25 mmol/L (23-31); Chloride 107 mmol/L (98-107); Estimated GFR-MDRD 63; Glucose 122 mg/dL (83-110); Potassium 4.2 mmol/L (3.5-5.1); Sodium 139 mmol/L (136-145)
[2018-10-06] MEDS ORDERED: Bacteriostatic Water 30 ML VIAL FS PRN (08:04)
[2018-10-06] MEDS: Cefdinir 300 MG CAP PO SCH ×2 (08:30→20:01)
[2018-10-06] MEDS: Polyethylene Glycol 3350 17 GM Packet PO SCH (08:30)
[2018-10-06] MEDS: Enoxaparin Sodium 40 MG/0.4 ML SYRINGE SC SCH (08:31)
[2018-10-06] MEDS: ALPRAZolam 0.25 MG TAB PO PRN ×2 (09:27→20:01)
--- NOTE | 2018-10-06 11:01 | PQF ---
SHANNAN LUCIA MALIK MD [id number] CLINICAL DOCUMENTATION IMPROVEMENT CLARIFICATION FORM: ICD-10 Updated PLEASE DO AN ADDENDUM TO THE PROGRESS NOTE WITH ANY DOCUMENTATION UPDATES OR ADDITIONS AND CARRY THROUGH TO DC SUMMARY. THANK YOU. DATE: 10/06 ATTN: DR. DANIEL HENDERSON Please exercise your independent, professional judgment in responding to the clarification form. Clinical indicators are provided on the bottom of this form for your review. Please check appropriate box(es): [ ] Sepsis due to: (Pna, UTI, gangrenous gall bladder, etc.) [ ] Severe sepsis with acute organ dysfunction of: (Examples: respiratory failure, encephalopathy, acute kidney failure, other) [ ] Localized infection without sepsis [ ] Other diagnosis [ ] Unable to determine In addition, please specify: Present on Admission (POA): [ ] Yes [ ] No [ ] Unable to determine For continuity of documentation, please document condition throughout progress notes and discharge summary. Thank You. CLINICAL INDICATORS - SIGNS / SYMPTOMS / LABS ER PRESENTATION 10/04: SEPSIS ALERT RR: 18-34 HR: 88-130 BP: 174/129 PT REPORTS FVR: 103.0 INTUBATED: 10/04, 1731 WBC: 17.0 LACTIC ACID: 3.2 RISKS: SEVERE COPD W/EXACERBATION ACUTE ON CHRONIC RESPIRATORY FAILURE W/HYPOXIA & HYPERCAPNIA RESPIRATORY ACIDOSIS TREATMENT: IVF (2.5L NS IN ER); LR (10/04 - PRESENT) IV ANTIBIOTICS (CEFEPIME & AZITHROMYCIN IN ER) INTUBATION W/MECHANICAL VENTILATION (<24 HRS) THANK YOU! Ana (This form is maintained as a part of the permanent medical record) 2014 [employer]. All Rights Reserved Ana Agarwal, RN, BSN [email or web address] Office: [phone] [facility]
--- NOTE | 2018-10-06 11:48 | PRG ---
DATE OF SERVICE: 10/06/2018 SUBJECTIVE: Raj Lin is very talkative this morning. He is also very anxious. OBJECTIVE: VITAL SIGNS: He is afebrile. Heart rate 72, blood pressure 127/61, respiratory rates in the 20s. LUNGS: Lungs are remarkable for coarse equal breath sounds. He is not wheezing at this time. HEART: Regular rhythm. ABDOMEN: Soft and nontender. EXTREMITIES: Without edema. He is concerned because he has not had a bowel movement since he was extubated. I explained to him that he had a significant NG output, probably has some degree of an ileus at this point in time. White count today is 11.7, hemoglobin 12.4, platelets 196. Electrolytes normal. BUN 41, creatinine 1.12. IMPRESSION: 1. Respiratory failure associated with chronic obstructive pulmonary disease exacerbation. 2. Complaints of diarrhea alternating with constipation. He says he is trying to find a primary care doctor. 3. Severe anxiety. He is to go back on his alprazolam. 4. Deconditioning. 5. History of a gastrointestinal bleed. 6. History of 20-30 beers a day. Alcohol consumption abstinent now. We will restart his anxiolytics. We will continue steroids and nebulized treatments. He may benefit from MiraLAX, steroid dose be decreased. He is stable to move out of the critical care unit in my opinion. He can be treated with p.o. antimicrobial therapy since he has no pneumonia. This is a straightforward COPD exacerbation at this time. Job ID: [id number]
--- NOTE | 2018-10-06 21:47 | PDOC.PN ---
- Subjective Encounter Start Date: 10/06/18 Encounter Start Time: 11:00 Patient seen and examined for Resp failure. Cough +. No new complaints. No overnight events - Objective MAR Reviewed: Yes Vital Signs & Weight: Vital Signs (12 hours) Temp Pulse Resp Pulse Ox 10/06/18 19:44 81 32 H 98 10/06/18 19:21 97 10/06/18 19:00 98.4 F 10/06/18 15:00 98.1 F 10/06/18 13:26 80 24 H 97 10/06/18 11:00 98 F Weight Weight 181 lb 10.574 oz Most Recent Monitor Data Heart Rate from ECG 86 NIBP 144/79 NIBP BP-Mean 100 Respiration from ECG 28 SpO2 97 I&O: 10/05/18 10/06/18 10/07/18 06:59 06:59 06:59 Intake Total 1305 3128 1998 Output Total 818 1215 710 Balance 487 1913 1288 Result Diagrams: 10/07/18 04:14 10/07/18 04:14 EKG Reviewed by me: Yes (Tele SR) Phys Exam - Physical Examination Constitutional: NAD Respiratory: no wheezing B/L rhonchi Cardiovascular: RRR, no rub Gastrointestinal: soft, non-tender, positive bowel sounds Musculoskeletal: no edema Dx/Plan - Plan DVT proph w/SCDs 1. Acute hypoxic hypercapnic resp failure/COPD Exacerbation - s/p Mech Ventilation 2. Sepsis with acute organ dysfunction due to ?Pneumonia - suspected Pneumococcal 3. MUKESH/CKD 2 4. BPH 5. HTN/Anxiety 6. Hyperkalemia - resolved PLAN: Cont steroids/PO Atbx DC IVF - Patient tolerating PO well Confirm home meds Review of Systems - Review of Systems Cardiovascular: negative: chest pain, palpitations, orthopnea, paroxysmal nocturnal dyspnea, edema, light headedness, other Gastrointestinal: negative: Nausea, Vomiting, Abdominal Pain, Diarrhea, Constipation, Melena, Hematochezia, Other - Medications/Allergies Allergies/Adverse Reactions: Allergies Allergy/AdvReac Type Severity Reaction Status Date / Time No Known Allergies Allergy Verified 11/11/16 14:23 Medications: Current Medications Acetaminophen (Tylenol) 650 mg [place] Q4H PRN PRN Reason: Headache/Fever/Mild Pain (1-3) Albuterol/Ipratropium (Duoneb) 3 ml NEB [id number] [facility] Last Admin: 10/06/18 19:44 Dose: 3 ml Albuterol/Ipratropium (Duoneb) 3 ml NEB [id number] PRN PRN Reason: SOB &/or Wheezing Alprazolam (Xanax) 0.25 mg PO TIDPRN PRN PRN Reason: Anxiety Last Admin: 10/06/18 20:01 Dose: 0.25 mg Bisacodyl (Dulcolax) 10 mg [place] DAILYPRN PRN PRN Reason: Constipation Cefdinir (Omnicef) 300 mg PO BID [facility] Last Admin: 10/06/18 20:01 Dose: 300 mg Enoxaparin Sodium (Lovenox) 40 mg SC 0900 [facility] Last Admin: 10/06/18 08:31 Dose: 40 mg Hydralazine HCl (Apresoline) 10 mg SLOW IVP Q6H PRN PRN Reason: SBP Greater Than 170 Potassium Chloride 40 meq/ (Sodium Chloride) 270 mls @ 135 mls/hr IVPB ASDIR PRN PRN Reason: FOR SERUM K+ 2.5 - 3.5 Potassium Chloride 40 meq/ (Device) 100 mls @ 50 mls/hr IVPB ASDIR PRN PRN Reason: FOR SERUM K+ 2.5 - 3.5 Magnesium Sulfate 1 gm/ Sodium (Chloride) 102 mls @ 102 mls/hr IV PRN PRN PRN Reason: MAG LEVEL 1.4 - 2.0 Magnesium Sulfate 2 gm/ Device 50 mls @ 50 mls/hr IVPB ASDIR PRN PRN Reason: MAGNESIUM < 1.4 Potassium Phosphate 9 mmol/ (Sodium Chloride) 103 mls @ 25.75 mls/hr IVPB ASDIR PRN PRN Reason: Phosphate 1.0-1.8 Potassium Phosphate 12 mmol/ (Sodium Chloride) 254 mls @ 63.5 mls/hr IV ASDIR PRN PRN Reason: Serum phosphate 0.5-0.9 Potassium Phosphate 15 mmol/ (Sodium Chloride) 255 mls @ 63.75 mls/hr IV ASDIR PRN PRN Reason: Serum Phos < 0.5 Magnesium Oxide (Magnesium Oxide) 400 mg PO BIDPRN PRN PRN Reason: FOR SERUM MAG 1.4 - 2.0 Magnesium Oxide (Magnesium Oxide) 800 mg PO PRN PRN PRN Reason: FOR SERUM MAG < 1.4 Methylprednisolone Sodium Succinate (Solu-Medrol) 20 mg IVP Q6HR [facility] Last Admin: 10/06/18 18:07 Dose: 20 mg Miscellaneous Medication (Phos-Nak) 1 pkt PO TIDPRN PRN PRN Reason: FOR PHOS LEVEL 1.0 - 1.8 Miscellaneous Medication (Phos-Nak) 2 pkt PO TIDPRN PRN PRN Reason: FOR PHOS LEVEL 0.5 - 1.0 Ccu Electrolyte (Replacement Protocol) 0 each FS PRN PRN PRN Reason: FOR ELECTROLYTE REPLACEMENT Polyethylene Glycol (Miralax) 17 gm PO DAILY [facility] Last Admin: 10/06/18 08:30 Dose: 17 gm Potassium Chloride (K-Dur) 40 meq PO ASDIR PRN PRN Reason: FOR SERUM K+ 2.5 - 3.5 Potassium Chloride (Klor-Con) 40 meq PER TUBE ASDIR PRN PRN Reason: FOR SERUM K+ 2.5-3.5 Sodium Chloride (Flush - Normal Saline) 10 ml IVF Q12HR [facility] Last Admin: 10/06/18 20:01 Dose: 10 ml Sodium Chloride (Flush - Normal Saline) 10 ml IVF PRN PRN PRN Reason: Saline Flush
[2018-10-07 04:54] LABS: #Lymphocytes 0.5 thou/uL (1.20-3.40); #Monocytes 0.4 thou/uL (0.11-0.59); #Neutrophils 11.2 thou/uL (1.40-6.50); %Eosinophils 0.1 % (0.0-10.0); %Lymphocytes 4.3 % (21.0-51.0); %Neutrophils 92.6 % (42.0-75.0); Hemoglobin 11.3 g/dL (14.0-18.0); Mean Corpuscular Hemoglobin 30.7 pg (27.0-31.0); Mean Corpuscular Volume 96.1 fL (78.0-98.0); Mean Platelet Volume 7.6 fL (7.4-10.4); Platelet Count 204 thou/uL (130-400); White Blood Cell (WBC) Count 12.1 thou/uL (4.8-10.8)
[2018-10-07 05:08] LABS: Anion Gap 9 mmol/L (10-20); BUN (Urea Nitrogen) 36 mg/dL (8.4-25.7); Calc. Creatinine Clearance 78 mL/min (70-130); Carbon Dioxide 28 mmol/L (23-31); Chloride 106 mmol/L (98-107); Estimated GFR-MDRD 81; Glucose 130 mg/dL (83-110); Magnesium 2.4 mg/dL (1.6-2.6); Potassium 4.3 mmol/L (3.5-5.1); Sodium 139 mmol/L (136-145)
[2018-10-07] MEDS: methylPREDNISolone Sod Succ 40 MG VIAL IVP SCH ×3 (05:53→17:52)
[2018-10-07] MEDS: Cefdinir 300 MG CAP PO SCH (07:55)
[2018-10-07] MEDS: Polyethylene Glycol 3350 17 GM Packet PO SCH (07:55)
[2018-10-07] MEDS: Enoxaparin Sodium 40 MG/0.4 ML SYRINGE SC SCH (07:56)
[2018-10-07] MEDS ORDERED: Bisacodyl 5 MG TAB PO PRN (14:19)
--- NOTE | 2018-10-07 16:23 | PRG ---
DATE OF SERVICE: 10/07/2018 SUBJECTIVE: Raj Lin had no complaints today. He said he is feeling much better. OBJECTIVE: VITAL SIGNS: His heart rate is 80, respiratory rate is 20, oximetry is 99 on room air, and blood pressure 144/75. HEAD AND NECK: Unremarkable. LUNGS: Free of wheezes now. HEART: Regular rhythm. ABDOMEN: Soft. EXTREMITIES: Without asymmetry or edema. LABORATORY DATA: White count 12.1, hemoglobin 11.3, and platelets 204. Sodium 139, potassium 4.3, chloride 106, bicarb 28, BUN 36, and creatinine 0.9. He does have a nontender abdomen, but had not had bowel movement. He will be given a laxative. IMPRESSION: 1. Status post mechanical ventilation for chronic obstructive pulmonary disease exacerbation. 2. Anxiety, improved with p.r.n. alprazolam. 3. Constipation. He will be given a laxative. He has been taking MiraLAX and this did not work. He wants to establish contact with a liquid loader if this can be done as an outpatient. No acute GI issues at least at this time. 4. History of gastrointestinal bleed in the past. 5. History of alcohol in the past. He is very pleasant and cooperative. He is able be transferred out to a non-monitored bed. Job ID: [id number]
[2018-10-07] MEDS ORDERED: Sodium Chloride 0.9% 10 ML ONE (17:52)
--- NOTE | 2018-10-07 22:12 | PDOC.PN ---
- Subjective Encounter Start Date: 10/07/18 Encounter Start Time: 12:30 Patient seen and examined for Resp failure. SOB improving. No fever. Cough +. No new complaints. No overnight events - Objective MAR Reviewed: Yes Vital Signs & Weight: Vital Signs (12 hours) Temp Pulse Resp BP Pulse Ox 10/07/18 20:14 98.0 F 77 16 160/75 H 94 L 10/07/18 15:36 98.2 F 79 20 163/75 H 97 10/07/18 13:22 80 20 99 Weight Weight 184 lb 4.903 oz Most Recent Monitor Data Heart Rate from ECG 92 NIBP 144/75 NIBP BP-Mean 98 Respiration from ECG 26 SpO2 97 I&O: 10/06/18 10/07/18 10/08/18 06:59 06:59 06:59 Intake Total 3128 2198 1130 Output Total 1215 1145 1315 Balance 1913 1053 -185 Result Diagrams: 10/07/18 04:14 10/07/18 04:14 Phys Exam - Physical Examination Constitutional: NAD Respiratory: no rales Scat wheezing/rhonchi Cardiovascular: RRR, no rub Gastrointestinal: soft, non-tender, positive bowel sounds Musculoskeletal: no edema Dx/Plan - Plan DVT proph w/SCDs 1. Acute hypoxic hypercapnic resp failure/COPD Exacerbation - s/p Mech Ventilation 2. Sepsis with acute organ dysfunction due to ?Pneumonia - suspected Pneumococcal 3. MUKESH/CKD 2 - improving 4. BPH 5. HTN/Anxiety 6. Hyperkalemia - resolved PLAN: Cont current dose of steroids Cont PO Atbx Treat constipation Home meds to be verified. Review of Systems - Review of Systems Cardiovascular: negative: chest pain, palpitations, orthopnea, paroxysmal nocturnal dyspnea, edema, light headedness, other Gastrointestinal: negative: Nausea, Vomiting, Abdominal Pain, Diarrhea, Constipation, Melena, Hematochezia, Other - Medications/Allergies Allergies/Adverse Reactions: Allergies Allergy/AdvReac Type Severity Reaction Status Date / Time No Known Allergies Allergy Verified 11/11/16 14:23 Medications: Current Medications Acetaminophen (Tylenol) 650 mg [place] Q4H PRN PRN Reason: Headache/Fever/Mild Pain (1-3) Albuterol/Ipratropium (Duoneb) 3 ml NEB [id number] TIMI Last Admin: 10/07/18 19:05 Dose: 3 ml Albuterol/Ipratropium (Duoneb) 3 ml NEB [id number] PRN PRN Reason: SOB &/or Wheezing Alprazolam (Xanax) 0.25 mg PO TIDPRN PRN PRN Reason: Anxiety Last Admin: 10/06/18 20:01 Dose: 0.25 mg Bisacodyl (Dulcolax) 10 mg [place] DAILYPRN PRN PRN Reason: Constipation Bisacodyl (Dulcolax) 5 mg PO DAILY PRN PRN Reason: Constipation Last Admin: 10/07/18 14:36 Dose: 5 mg Cefdinir (Omnicef) 300 mg PO BID [facility] Last Admin: 10/07/18 07:55 Dose: 300 mg Enoxaparin Sodium (Lovenox) 40 mg SC 0900 [facility] Last Admin: 10/07/18 07:56 Dose: 40 mg Hydralazine HCl (Apresoline) 10 mg SLOW IVP Q6H PRN PRN Reason: SBP Greater Than 170 Potassium Chloride 40 meq/ (Sodium Chloride) 270 mls @ 135 mls/hr IVPB ASDIR PRN PRN Reason: FOR SERUM K+ 2.5 - 3.5 Potassium Chloride 40 meq/ (Device) 100 mls @ 50 mls/hr IVPB ASDIR PRN PRN Reason: FOR SERUM K+ 2.5 - 3.5 Magnesium Sulfate 1 gm/ Sodium (Chloride) 102 mls @ 102 mls/hr IV PRN PRN PRN Reason: MAG LEVEL 1.4 - 2.0 Magnesium Sulfate 2 gm/ Device 50 mls @ 50 mls/hr IVPB ASDIR PRN PRN Reason: MAGNESIUM < 1.4 Potassium Phosphate 9 mmol/ (Sodium Chloride) 103 mls @ 25.75 mls/hr IVPB ASDIR PRN PRN Reason: Phosphate 1.0-1.8 Potassium Phosphate 12 mmol/ (Sodium Chloride) 254 mls @ 63.5 mls/hr IV ASDIR PRN PRN Reason: Serum phosphate 0.5-0.9 Potassium Phosphate 15 mmol/ (Sodium Chloride) 255 mls @ 63.75 mls/hr IV ASDIR PRN PRN Reason: Serum Phos < 0.5 Magnesium Oxide (Magnesium Oxide) 400 mg PO BIDPRN PRN PRN Reason: FOR SERUM MAG 1.4 - 2.0 Magnesium Oxide (Magnesium Oxide) 800 mg PO PRN PRN PRN Reason: FOR SERUM MAG < 1.4 Methylprednisolone Sodium Succinate (Solu-Medrol) 20 mg IVP Q6HR [facility] Last Admin: 10/07/18 17:52 Dose: 20 mg Miscellaneous Medication (Phos-Nak) 1 pkt PO TIDPRN PRN PRN Reason: FOR PHOS LEVEL 1.0 - 1.8 Miscellaneous Medication (Phos-Nak) 2 pkt PO TIDPRN PRN PRN Reason: FOR PHOS LEVEL 0.5 - 1.0 Ccu Electrolyte (Replacement Protocol) 0 each FS PRN PRN PRN Reason: FOR ELECTROLYTE REPLACEMENT Polyethylene Glycol (Miralax) 17 gm PO DAILY [facility] Last Admin: 10/07/18 07:55 Dose: 17 gm Potassium Chloride (K-Dur) 40 meq PO ASDIR PRN PRN Reason: FOR SERUM K+ 2.5 - 3.5 Potassium Chloride (Klor-Con) 40 meq PER TUBE ASDIR PRN PRN Reason: FOR SERUM K+ 2.5-3.5 Sodium Chloride (Flush - Normal Saline) 10 ml IVF Q12HR [facility] Last Admin: 10/07/18 07:57 Dose: 10 ml Sodium Chloride (Flush - Normal Saline) 10 ml IVF PRN PRN PRN Reason: Saline Flush
[2018-10-07] MEDS ORDERED: DC Electrolyte Protocol FS ONE (23:36)
[2018-10-08] MEDS: methylPREDNISolone Sod Succ 40 MG VIAL IVP SCH ×5 (00:33→23:56)
[2018-10-08] MEDS: Cefdinir 300 MG CAP PO SCH ×3 (00:36→21:51)
[2018-10-08] MEDS: Famotidine 20 MG TAB PO SCH ×2 (09:31→21:52)
[2018-10-08] MEDS: Senokot S 8.6-50 MG TAB PO SCH ×2 (09:32→22:20)
[2018-10-08] MEDS: Enoxaparin Sodium 40 MG/0.4 ML SYRINGE SC SCH (09:32)
[2018-10-08] MEDS: Polyethylene Glycol 3350 17 GM Packet PO SCH (09:32)
[2018-10-08] MEDS: ALPRAZolam 0.25 MG TAB PO PRN ×2 (09:38→13:12)
--- NOTE | 2018-10-08 12:53 | PDOC.PN ---
- Subjective Encounter Start Date: 10/08/18 Encounter Start Time: 07:45 -: old records requested/rev Patient seen and examined. No new complaints. No overnight events per pt he is not ready for discharge today - Objective MAR Reviewed: Yes Vital Signs & Weight: Vital Signs (12 hours) Temp Pulse Resp BP Pulse Ox 10/08/18 11:37 98.1 F 77 24 H 181/79 H 94 L 10/08/18 07:52 97.6 F 68 24 H 153/69 H 93 L 10/08/18 07:46 80 16 98 10/08/18 04:00 97.8 F 70 20 127/60 96 10/08/18 00:52 80 16 99 Weight Weight 184 lb 4.903 oz Most Recent Monitor Data Heart Rate from ECG 92 NIBP 144/75 NIBP BP-Mean 98 Respiration from ECG 26 SpO2 97 I&O: 10/07/18 10/08/18 10/09/18 06:59 06:59 06:59 Intake Total 2198 1130 Output Total 1145 2065 Balance 1053 -935 Result Diagrams: 10/07/18 04:14 10/07/18 04:14 Phys Exam - Physical Examination Constitutional: NAD HEENT: PERRLA, moist MMs, sclera anicteric Neck: no JVD, supple Respiratory: no wheezing, no rales, no rhonchi reduced air entry Cardiovascular: RRR, no significant murmur, no rub Gastrointestinal: soft, non-tender, no distention, positive bowel sounds Musculoskeletal: no edema, pulses present Neurological: non-focal, normal sensation Lymphatic: no nodes Psychiatric: normal affect, A&O x 3 Skin: no rash, normal turgor Dx/Plan (1) COPD exacerbation Code(s): J44.1 - CHRONIC OBSTRUCTIVE PULMONARY DISEASE W (ACUTE) EXACERBATION Status: Acute Comment: (2) Acute respiratory failure with hypoxia and hypercapnia Code(s): J96.01 - ACUTE RESPIRATORY FAILURE WITH HYPOXIA; J96.02 - ACUTE RESPIRATORY FAILURE WITH HYPERCAPNIA Status: Acute (3) MUKESH (acute kidney injury) Code(s): N17.9 - ACUTE KIDNEY FAILURE, UNSPECIFIED Status: Resolved (4) BPH (benign prostatic hyperplasia) Code(s): N40.0 - BENIGN PROSTATIC HYPERPLASIA WITHOUT LOWER URINRY TRACT SYMP Status: Acute (5) CAD (coronary artery disease) Code(s): I25.10 - ATHSCL HEART DISEASE OF [place] CORONARY ARTERY W/O ANG PCTRS Status: Chronic (6) Hypertension Code(s): I10 - ESSENTIAL (PRIMARY) HYPERTENSION Status: Chronic - Plan cont current plan of care, plan discussed w/ family, continue antibiotics, PT/OT , social worker psychiatric, respiratory therapy * per pt he does not have home oxygen * will assess him for home oxygen and arrange if needed * he will think about going to rehab vs home today * medication reviewed as below * symptomatic treatment * overall stable and improving but per pt he is not baseline. Review of Systems - Review of Systems Constitutional: weakness. negative: fever, chills, sweats, malaise, other Respiratory: Cough, SOB with Excertion. negative: Dry, Shortness of Breath, Hemoptysis, Pleuritic Pain, Sputum, Wheezing Cardiovascular: negative: chest pain, palpitations, orthopnea, paroxysmal nocturnal dyspnea, edema, light headedness, other Gastrointestinal: negative: Nausea, Vomiting, Abdominal Pain, Diarrhea, Constipation, Melena, Hematochezia, Other Genitourinary: negative: Dysuria, Frequency, Incontinence, Hematuria, Retention , Other Musculoskeletal: negative: Neck Pain, Shoulder Pain, Arm Pain, Back Pain, Hand Pain, Leg Pain, Foot Pain, Other Skin: negative: Rash, Lesions, Wili, Bruising, Other - Medications/Allergies Allergies/Adverse Reactions: Allergies Allergy/AdvReac Type Severity Reaction Status Date / Time No Known Allergies Allergy Verified 11/11/16 14:23 Medications: Current Medications Acetaminophen (Tylenol) 650 mg [place] Q4H PRN PRN Reason: Headache/Fever/Mild Pain (1-3) Albuterol/Ipratropium (Duoneb) 3 ml NEB [id number] TIMI Last Admin: 10/08/18 07:46 Dose: 3 ml Albuterol/Ipratropium (Duoneb) 3 ml NEB [id number] PRN PRN Reason: SOB &/or Wheezing Alprazolam (Xanax) 0.25 mg PO TIDPRN PRN PRN Reason: Anxiety Last Admin: 10/08/18 09:38 Dose: 0.25 mg Bisacodyl (Dulcolax) 10 mg [place] DAILYPRN PRN PRN Reason: Constipation Bisacodyl (Dulcolax) 5 mg PO DAILY PRN PRN Reason: Constipation Last Admin: 10/07/18 14:36 Dose: 5 mg Cefdinir (Omnicef) 300 mg PO BID [facility] Last Admin: 10/08/18 09:32 Dose: 300 mg Enoxaparin Sodium (Lovenox) 40 mg SC 0900 [facility] Last Admin: 10/08/18 09:32 Dose: 40 mg Famotidine (Pepcid) 20 mg PO BID [facility] Last Admin: 10/08/18 09:31 Dose: 20 mg Hydralazine HCl (Apresoline) 10 mg SLOW IVP Q6H PRN PRN Reason: SBP Greater Than 170 Methylprednisolone Sodium Succinate (Solu-Medrol) 20 mg IVP Q6HR [facility] Last Admin: 10/08/18 07:20 Dose: 20 mg Polyethylene Glycol (Miralax) 17 gm PO DAILY [facility] Last Admin: 10/08/18 09:32 Dose: 17 gm Senna/Docusate Sodium (Senokot S) 2 tab PO BID [facility] Last Admin: 10/08/18 09:32 Dose: Not Given Sodium Chloride (Flush - Normal Saline) 10 ml IVF Q12HR [facility] Last Admin: 10/08/18 09:33 Dose: 10 ml Sodium Chloride (Flush - Normal Saline) 10 ml IVF PRN PRN PRN Reason: Saline Flush
--- NOTE | 2018-10-08 14:48 | PRG ---
DATE OF SERVICE: 10/08/2018 SUBJECTIVE: Riley is doing well. He has no complaints. He is told he have to go home with oxygen. That had not been determined yet. OBJECTIVE: VITAL SIGNS: He is afebrile. Heart rate 77, respiratory rate 24. He just walked and exercising with physical therapy. Dropped his sats down to about 83 on room air. He kept his sats over 90 on 2 L. His room air sat was, I believe over 90 prior to starting to walk or right at 90. LUNGS: Clear. HEART: Regular rhythm. ABDOMEN: Soft. IMPRESSION: Chronic obstructive pulmonary disease exacerbation with respiratory failure, requiring intubation. He is clinically improved. It is to be determined whether or not he will need oxygen and this only needs to be determined at discharge. We will see him in followup tomorrow and we will consider discharge in 24 to 48 hours. Job ID: [id number]
[2018-10-09] MEDS: methylPREDNISolone Sod Succ 40 MG VIAL IVP SCH ×3 (05:36→17:48)
[2018-10-09] MEDS: ALPRAZolam 0.25 MG TAB PO PRN (05:46)
[2018-10-09] MEDS: Senokot S 8.6-50 MG TAB PO SCH ×2 (08:30→20:51)
[2018-10-09] MEDS: Cefdinir 300 MG CAP PO SCH ×2 (08:30→20:50)
[2018-10-09] MEDS: Famotidine 20 MG TAB PO SCH ×2 (08:31→20:51)
[2018-10-09] MEDS: Polyethylene Glycol 3350 17 GM Packet PO SCH (08:31)
[2018-10-09] MEDS: Enoxaparin Sodium 40 MG/0.4 ML SYRINGE SC SCH (08:31)
--- NOTE | 2018-10-09 13:19 | PDOC.PN ---
- Subjective Encounter Start Date: 10/09/18 Encounter Start Time: 08:30 Patient seen and examined. No new complaints. No overnight events - Objective MAR Reviewed: Yes Vital Signs & Weight: Vital Signs (12 hours) Temp Pulse Resp BP BP Pulse Ox 10/09/18 12:15 91 L 10/09/18 11:55 97.6 F 78 22 H 144/65 H 94 L 10/09/18 11:06 86 16 94 L 10/09/18 09:45 93 L 10/09/18 08:30 95 10/09/18 08:20 98.1 F 72 24 H 161/76 H 95 10/09/18 08:01 80 16 93 L 10/09/18 05:48 97.7 F 66 20 155/66 H 96 Weight Weight 6.215 oz Most Recent Monitor Data Heart Rate from ECG 92 NIBP 144/75 NIBP BP-Mean 98 Respiration from ECG 26 SpO2 97 I&O: 10/08/18 10/09/18 10/10/18 06:59 06:59 06:59 Intake Total 1130 1520 Output Total 2065 700 Balance -935 820 Result Diagrams: 10/07/18 04:14 10/07/18 04:14 Phys Exam - Physical Examination Constitutional: NAD HEENT: PERRLA, moist MMs, sclera anicteric Neck: no JVD, supple Respiratory: no wheezing, no rales, no rhonchi Cardiovascular: RRR, no significant murmur, no rub Gastrointestinal: soft, non-tender, no distention, positive bowel sounds Musculoskeletal: no edema, pulses present Neurological: non-focal, normal sensation Lymphatic: no nodes Psychiatric: normal affect, A&O x 3 Skin: no rash, normal turgor Dx/Plan (1) COPD exacerbation Code(s): J44.1 - CHRONIC OBSTRUCTIVE PULMONARY DISEASE W (ACUTE) EXACERBATION Status: Acute Comment: (2) Acute respiratory failure with hypoxia and hypercapnia Code(s): J96.01 - ACUTE RESPIRATORY FAILURE WITH HYPOXIA; J96.02 - ACUTE RESPIRATORY FAILURE WITH HYPERCAPNIA Status: Acute (3) MUKESH (acute kidney injury) Code(s): N17.9 - ACUTE KIDNEY FAILURE, UNSPECIFIED Status: Resolved (4) BPH (benign prostatic hyperplasia) Code(s): N40.0 - BENIGN PROSTATIC HYPERPLASIA WITHOUT LOWER URINRY TRACT SYMP Status: Acute (5) CAD (coronary artery disease) Code(s): I25.10 - ATHSCL HEART DISEASE OF [place] CORONARY ARTERY W/O ANG PCTRS Status: Chronic (6) Hypertension Code(s): I10 - ESSENTIAL (PRIMARY) HYPERTENSION Status: Chronic - Plan cont current plan of care, continue antibiotics, respiratory therapy * medication reviewed as below * symptomatic treatment * continue current respiratory therapy * check room air oxygen level * will consider discharge when pulmonary ok. Review of Systems - Review of Systems ENT: negative: Ear Pain, Ear Discharge, Nose Pain, Nose Discharge, Nose Congestion, Mouth Pain, Mouth Swelling, Throat Pain, Throat Swelling, Other Respiratory: negative: Cough, Dry, Shortness of Breath, Hemoptysis, SOB with Excertion, Pleuritic Pain, Sputum, Wheezing Cardiovascular: negative: chest pain, palpitations, orthopnea, paroxysmal nocturnal dyspnea, edema, light headedness, other Gastrointestinal: negative: Nausea, Vomiting, Abdominal Pain, Diarrhea, Constipation, Melena, Hematochezia, Other Genitourinary: negative: Dysuria, Frequency, Incontinence, Hematuria, Retention , Other Musculoskeletal: negative: Neck Pain, Shoulder Pain, Arm Pain, Back Pain, Hand Pain, Leg Pain, Foot Pain, Other - Medications/Allergies Allergies/Adverse Reactions: Allergies Allergy/AdvReac Type Severity Reaction Status Date / Time No Known Allergies Allergy Verified 11/11/16 14:23 Medications: Current Medications Acetaminophen (Tylenol) 650 mg LA Q4H PRN PRN Reason: Headache/Fever/Mild Pain (1-3) Albuterol/Ipratropium (Duoneb) 3 ml NEB [id number] PRN PRN Reason: SOB &/or Wheezing Albuterol/Ipratropium (Duoneb) 3 ml NEB [id number] TIMI Last Admin: 10/09/18 11:06 Dose: 3 ml Alprazolam (Xanax) 0.25 mg PO TIDPRN PRN PRN Reason: Anxiety Last Admin: 10/09/18 05:46 Dose: 0.25 mg Bisacodyl (Dulcolax) 10 mg LA DAILYPRN PRN PRN Reason: Constipation Bisacodyl (Dulcolax) 5 mg PO DAILY PRN PRN Reason: Constipation Last Admin: 10/07/18 14:36 Dose: 5 mg Cefdinir (Omnicef) 300 mg PO BID [facility] Last Admin: 10/09/18 08:30 Dose: 300 mg Enoxaparin Sodium (Lovenox) 40 mg SC 0900 [facility] Last Admin: 10/09/18 08:31 Dose: 40 mg Famotidine (Pepcid) 20 mg PO BID [facility] Last Admin: 10/09/18 08:31 Dose: 20 mg Hydralazine HCl (Apresoline) 10 mg SLOW IVP Q6H PRN PRN Reason: SBP Greater Than 170 Methylprednisolone Sodium Succinate (Solu-Medrol) 20 mg IVP Q6HR [facility] Last Admin: 10/09/18 12:12 Dose: 20 mg Polyethylene Glycol (Miralax) 17 gm PO DAILY [facility] Last Admin: 10/09/18 08:31 Dose: 17 gm Senna/Docusate Sodium (Senokot S) 2 tab PO BID [facility] Last Admin: 10/09/18 08:30 Dose: 2 tab Sodium Chloride (Flush - Normal Saline) 10 ml IVF Q12HR [facility] Last Admin: 10/09/18 08:31 Dose: 10 ml Sodium Chloride (Flush - Normal Saline) 10 ml IVF PRN PRN PRN Reason: Saline Flush Last Admin: 10/09/18 12:12 Dose: 10 ml
--- NOTE | 2018-10-09 16:43 | PRG ---
DATE OF SERVICE: 10/09/2018 SUBJECTIVE: Mr. Lin is doing better. He is determined not to have to wear oxygen when he goes home. His oximetry has been 91% to 94% on room air at rest, so fortunately he does not need oxygen. OBJECTIVE: VITAL SIGNS: He is afebrile, heart rate is 81, respiratory rate is 16, and blood pressure 148/66. LUNGS: Clear. HEART: Regular rhythm. ABDOMEN: Soft. LABORATORY DATA: There is no new lab. IMPRESSION AND PLAN: Chronic obstructive pulmonary disease exacerbation, slowly improving status post mechanical ventilation. He does not need oxygen at discharge. He will go home hopefully tomorrow with a slow steroid taper and continue with his anxiolytics and will be following closely as an outpatient. Job ID: [id number]
[2018-10-10] MEDS: methylPREDNISolone Sod Succ 40 MG VIAL IVP SCH ×2 (00:36→05:40)
[2018-10-10] MEDS: ALPRAZolam 0.25 MG TAB PO PRN (05:40)
[2018-10-10 08:04] VITALS: BP 187/93; TEMP 98.5
--- NOTE | 2018-10-10 10:02 | PRG ---
DATE OF SERVICE: 10/10/2018 SUBJECTIVE: Raj Lin has had no complaints. OBJECTIVE: VITAL SIGNS: He is afebrile; heart rate is in 70s; respiratory rates in the teens; oximetry is 90 on room air; and blood pressure 187/93, 149/80 year earlier this morning. LUNGS: Completely clear. IMPRESSION AND PLAN: Chronic obstructive pulmonary disease exacerbation with respiratory failure, requiring intubation. He does not need home oxygen. He will go home and continue using his nebulizer 4 times a day with ipratropium and albuterol. I have written for a 2-week prednisone taper 40 mg for 4 days, 20 for 8 days, and 10 for 8 days. Written for Omnicef 300 mg twice a day for another week. He will see me in 3 to 4 weeks after discharge. Job ID: [id number]
[2018-10-10] MEDS: Cefdinir 300 MG CAP PO SCH (10:13)
[2018-10-10] MEDS: Enoxaparin Sodium 40 MG/0.4 ML SYRINGE SC SCH (10:14)
[2018-10-10] MEDS: Famotidine 20 MG TAB PO SCH (10:14)
[2018-10-10] MEDS: Polyethylene Glycol 3350 17 GM Packet PO SCH (10:14)
[2018-10-10] MEDS: Senokot S 8.6-50 MG TAB PO SCH (10:15)
--- NOTE | 2018-10-10 11:03 | DIS ---
DATE OF ADMISSION: 10/04/2018 DATE OF DISCHARGE: 10/10/2018 PRIMARY CARE PHYSICIAN: [facility] Call Admission. DISCHARGE DISPOSITION: Home. PRIMARY DISCHARGE DIAGNOSES: 1. Acute respiratory failure with hypoxia and hypercapnia. 2. Chronic obstructive pulmonary disease exacerbation. 3. Acute kidney injury. SECONDARY DISCHARGE DIAGNOSES: 1. Hypertension. 2. Coronary artery disease. 3. Chronic obstructive pulmonary disease. 4. Benign enlargement of prostate. PRIMARY PROCEDURE/OPERATION: Endotracheal intubation and mechanical ventilatory support. RADIOLOGICAL INVESTIGATION: Chest x-ray. SIGNIFICANT LABORATORY DATA: WBC 12.1, hemoglobin 11.3, and platelets 204. Sodium 139, creatinine 0.90. Troponin 0.032. Urinalysis suggestive of UTI. Blood culture and urine culture, negative. Influenza negative. DISCHARGE MEDICATIONS: 1. DuoNeb q.4 hourly. 2. Ventolin HFA two puffs q.6 hourly p.r.n. 3. Alprazolam 0.25 mg p.o. t.i.d. p.r.n. 4. Aspirin 81 mg p.o. daily. 5. Amlodipine 5 mg daily. 6. Omnicef 300 mg p.o. b.i.d. 7. Pepcid 20 mg b.i.d. 8. MiraLAX 17 g p.o. daily. 9. Prednisone tapering dose as directed. CONTRAINDICATION: None. CODE STATUS: Full code. 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 Gee was following while in hospital. TEST RESULT PENDING ON DISCHARGE: None. ALLERGIES: NO KNOWN DRUG ALLERGIES. DISCHARGE PLAN: Posthospital, the patient will follow up with primary care physician and Dr. Gee as instructed. HOSPITAL COURSE: A 78-year-old male, who has underlying COPD, who was admitted by Dr. Caputo, please see his H and P for further details. On admission, the patient was having COPD flare up. He was having acute respiratory failure. He required intubation because he failed conservative treatment. He was treated with optimum COPD treatment with DuoNeb, steroid, and empiric antibiotic therapy. Subsequently, the patient was extubated and transferred to medical floor. Over there, the patient continued doing better. He was no longer requiring oxygen by the time of discharge. [facility] was following while in hospital and today they cleared him for discharge. On discharge, Dr. Gee prescribed Omnicef and prednisone tapering dose as well as Xanax, prescription given. Rest of medication will be continued as per previous. PHYSICAL EXAMINATION: I have seen and examined the patient at bedside today; VITAL SIGNS: Currently temperature 98.5, pulse 74, respiratory rate 18, saturation 91% on room air, blood pressure 149/80. GENERAL: The patient is currently alert and awake, in no obvious acute distress. LUNGS: Clear to auscultation without any rhonchi. CARDIAC: S1 and S2, regular without any murmur. ABDOMEN: Soft and benign without any tenderness. EXTREMITIES: No edema. NEUROLOGIC: Nonfocal examination. Overall, the patient is medically stable for discharge today. Job ID: [id number]
== END 2018-10-10 11:10 | disposition home or self-care (01) | DRG 871 ==
LOC: ERS 15:53 → CCU 20:34 → 3SE 10-07 16:10
PROVIDERS: ADMIT Internal Medicine; ATTEND Internal Medicine
PROC: 0BH17EZ Insertion of Endotracheal Airway into Trachea, Via Natural or Artificial Opening (ICD-10-PCS; principal; 2018-10-04)
PROC: 5A1935Z Respiratory Ventilation, Less than 24 Consecutive Hours (ICD-10-PCS; 2018-10-04)
DX: A41.9 Sepsis, unspecified organism (principal); J96.21 Acute and chronic respiratory failure with hypoxia; J96.22 Acute and chronic respiratory failure with hypercapnia; J44.1 Chronic obstructive pulmonary disease with (acute) exacerbation; N17.9 Acute kidney failure, unspecified; K59.00 Constipation, unspecified; F41.9 Anxiety disorder, unspecified; N40.0 Benign prostatic hyperplasia without lower urinary tract symptoms; I12.9 Hypertensive chronic kidney disease with stage 1 through stage 4 chronic kidney disease, or unspecified chronic kidney disease; J30.9 Allergic rhinitis, unspecified; R19.7 Diarrhea, unspecified; N18.2 Chronic kidney disease, stage 2 (mild); E87.5 Hyperkalemia; I25.10 Atherosclerotic heart disease of native coronary artery without angina pectoris; Z87.891 Personal history of nicotine dependence; Z79.82 Long term (current) use of aspirin
CPT/HCPCS: 36415; 71045; 80048; 80053; 81003; 81015; 82330; 82803; 82805; 83605; 83735; 84484; 85025; 87040; 87086; 87804; 93005; 94002; 94003; 94640; 94660; 94760; J0456; J0692; J1650; J2060; J2270; J2920; J2930; J3010; J3475; J3490; J7050; J7611; J7620

== ENCOUNTER 2019-08-31 08:48 | Inpatient (IN) | payer MEDICARE ==
[2019-08-31] MEDS ORDERED: Albuterol Sulfate 2.5 mg/0.5 ml Neb ONE (09:24)
[2019-08-31] MEDS ORDERED: Albuterol Sulfate 2.5 mg/3 ml Neb ONE (09:24)
--- NOTE | 2019-08-31 09:35 | RAD ---
RADIOGRAPH CHEST 2 VIEWS: DATE: 08/31/2019 HISTORY: 79-year-old male with dyspnea. FINDINGS: There is hyperinflation of the lungs, consistent with COPD. There is no evidence of air space densit y, pneumothorax, or pulmonary edema. There is no cardiomegaly or pleural effusion. IMPRESSION: 1. No acute cardiopulmonary findings. 2. Emphysema. taz [] POS: [facility]
[2019-08-31 09:42] LABS: #Basophils 0.1 thou/uL (0.0-0.2); #Eosinphils 0.2 thou/uL (0.0-0.7); #Lymphocytes 1.6 thou/uL (1.20-3.40); #Monocytes 0.6 thou/uL (0.11-0.59); #Neutrophils 9.1 thou/uL (1.40-6.50); %Basophils 0.5 % (0.0-1.0); %Eosinophils 2.1 % (0.0-10.0); %Lymphocytes 13.5 % (21.0-51.0); %Monocytes 5.4 % (0.0-10.0); %Neutrophils 78.5 % (42.0-75.0); Hemoglobin 15.6 g/dL (14.0-18.0); Mean Corpuscular HGB CONC 34.2 g/dL (32.0-36.0); Mean Corpuscular Hemoglobin 33.1 pg (27.0-31.0); Mean Corpuscular Volume 96.7 fL (78.0-98.0); Mean Platelet Volume 7.3 fL (7.4-10.4); Platelet Count 307 thou/uL (130-400); RBC Distribution Width 13.3 % (11.5-14.5); Red Blood Cell (RBC) Count 4.72 mill/uL (4.70-6.10); White Blood Cell (WBC) Count 11.6 thou/uL (4.8-10.8)
[2019-08-31 09:42] LABS: Actual Bicarbonate (HCO3a) 19.2 mEq/L (22-28); Analyzer IN Cardio ER; Base Excess (BEa) -4.7 mEq/L (-2.0 to +3.0); CO2 Tension 32.7 mmHg (35.0-45.0); Calcium, Ionized 1.22 mmol/L (1.12-1.30); Carboxyhemoglobin (COHb) 0.9 gm% (0.0-3.0); Hemoglobin (Hb) 15.5 g/dL (14.0-18.0); O2 Tension (PaO2) 90.9 mmHg (> 60.0); Potassium - ABG Lab 4.29 mmol/L (3.70-5.30); pH, Arterial 7.39 (7.35-7.45)
[2019-08-31 09:49] LABS: ALV-art Gradient 17.955 (0-20); Puncture Site L.R.
[2019-08-31 10:07] LABS: Anion Gap 14 mmol/L (10-20); Carbon Dioxide 26 mmol/L (23-31); Chloride 102 mmol/L (98-107); Potassium 4.6 mmol/L (3.5-5.1); Sodium 137 mmol/L (136-145)
[2019-08-31 10:08] LABS: ALT (SGPT) 20 U/L (8-55); AST (SGOT) 17 U/L (5-34); Albumin 4.2 g/dL (3.4-4.8); Alkaline Phosphatase 83 U/L (40-110); BUN (Urea Nitrogen) 20 mg/dL (8.4-25.7); Bilirubin, Total 0.9 mg/dL (0.2-1.2); Calc. Creatinine Clearance 0 mL/min (70-130); Calcium 9.7 mg/dL (7.8-10.44); Estimated GFR-MDRD 53; Globulin 2.5 g/dL (2.4-3.5); Glucose 95 mg/dL (83-110); Protein, Total 6.7 g/dL (5.8-8.1)
[2019-08-31] MEDS ORDERED: methylPREDNISolone Sod Succ/PF 125 MG/2 ML VIAL ONE (10:08)
[2019-08-31 10:18] LABS: CKMB 1.2 ng/mL (0-6.6)
[2019-08-31] MEDS ORDERED: Aspirin Chewable 81 MG TAB ONE (12:07)
--- NOTE | 2019-08-31 14:42 | HP ---
PRIMARY CARE PHYSICIAN: Dr Gomez. PRIMARY THEATRICAL AGENT: Dr. Gee. CHIEF COMPLAINT: Shortness of breath. HISTORY OF PRESENT ILLNESS: This is an 79-year-old white male with a history of severe COPD, not requiring home oxygen. He was last admitted to the hospital a little less than a year ago at which point, he had to be intubated for severe exacerbation. The patient has been having some decline over the last year, about 3 to 4 months ago, Dr. Gee did put him on 5 mg of prednisone daily to try and prevent hospitalizations. He has been taking that regularly along with an unknown steroid inhaler and p.r.n. albuterol. The patient reports that he is getting a little more short of breath over the last month. He did talk to Dr. Gee on the phone one month ago, was called in on prescription for Bactrim as well as a steroid course which he took. He felt better, but then after finishing the steroid course, he started to get worse again, specifically much worse shortness of breath for the last 3 days, minimal cough. Does not know of anything that may have specifically exacerbated. He does have continuous nasal congestion, which he takes Afrin for 2 to 3 times per day for years. REVIEW OF SYSTEMS: CONSTITUTIONAL: No fevers. No chills. EYES: No double vision or blurred vision. ENT: Chronic congestion and nasal drainage. No sore throat. CARDIOVASCULAR: No chest pain. No palpitations or racing heart. No lower extremity edema. PULMONARY: See HPI. GASTROINTESTINAL: No abdominal pain. No nausea or vomiting. No diarrhea. He does have chronic constipation. GENITOURINARY: The patient has a chronic urinary retention symptoms, urinates frequently except when he is constipated, then he has a hard time urinating at all. He has occasionally had blood in his urine as well. He was scheduled to see Dr. Allen, the urologist today to work this up, however, he canceled the appointment because he came into the hospital. MUSCULOSKELETAL: No muscle aches or joint pain. SKIN: No rashes or lesions noted. NEUROLOGIC: No numbness, tingling, or focal weakness. PAST MEDICAL HISTORY: 1. Chronic obstructive pulmonary disease. 2. Hypertension. 3. Benign prostatic hyperplasia. 4. Gastroesophageal reflux disease. 5. Allergic rhinitis. PAST PSYCHIATRIC HISTORY: Anxiety. PAST SURGICAL HISTORY: 1. Appendectomy. 2. Left humerus fracture. SOCIAL HISTORY: The patient is an ex-smoker, quit 6 to 7 years ago. He drinks alcohol about 2 times a week. No recreational drug use. He is a . FAMILY HISTORY: Significant for diabetes mellitus and hypertension. ALLERGIES: NO KNOWN DRUG ALLERGIES. CURRENT MEDICATIONS: 1. Aspirin 81 mg daily. 2. Prednisone 5 mg daily. 3. Albuterol as needed. 4. Unknown inhaler twice a day. 5. Previously on amlodipine, but he denies any current blood pressure medications. 6. Flomax 0.4 mg daily. PHYSICAL EXAMINATION: VITAL SIGNS: Blood pressure 150/80, pulse rate 82, respirations are 23 per minute, when I was in there, temperature 97.5, O2 saturation 98% on room air. GENERAL: This is a well-developed, well-nourished white male, who is in mild respiratory distress after an hourlong neb, much improved from when he presented per the ER notes. HEENT: Eyes, pupils are equal, round, and reactive to light. Oropharynx clear without lesions, erythema, or exudate. NECK: Supple. No lymphadenopathy. No thyroid nodules or enlargement. No JVD. HEART: Regular rate and rhythm. No murmurs, rubs, or gallops. LUNGS: The patient has poor breath sounds throughout the bilateral lung bahena. No wheezing or focal findings. Mild increased work of breathing right now, but no accessory muscle use and no tripoding. ABDOMEN: Soft. Nontender to palpation. Normoactive bowel sounds. No hepatosplenomegaly or other masses. EXTREMITIES: No clubbing, cyanosis, or edema. SKIN: No rashes or lesions noted. NEUROLOGIC: Intact strength and sensation in all extremities. No facial droop. PSYCHIATRIC: Alert and oriented x3. Normal mood and affect. LABORATORY DATA: CBC with a white blood cell count of 11,000. The rest was normal. Arterial blood gas did show a pCO2 of 32 and PO2 of 90, this was on room air. Complete metabolic panel is notable for creatinine of 1.31. He normally has a creatinine below 1, and the rest was normal. Troponin was indeterminate at 0.031 and CK-MB was normal. Lactic acid was negative. IMAGING STUDIES: Chest x-ray, I did review the chest x-ray done in the emergency room along with the radiologist's report. It does show emphysema with hyperinflation of the lungs. No evidence for infiltrate or other acute process. ASSESSMENT: 1. Chronic obstructive pulmonary disease exacerbation, markedly improved after steroids and nebulizer in the emergency room. Given the patient's severity of disease and his chronic steroid reliance, I suspect he will need to be admitted for 2 to 3 days to get his exacerbation calmed down with IV steroids. We will also put him on scheduled DuoNeb with q.4 hours as needed and we will continue the Levaquin started in the emergency room. We will consult Pulmonology, Dr. Barron is on-call for Dr. Gee. 2. Hypertension. The patient does not appear to be on any chronic antihypertensives currently. We will monitor closely and restart antihypertensives if he remains hypertensive in the hospital. 3. Gastroesophageal reflux disease. The patient is on Protonix 40 mg daily. 4. Anxiety disorder. We will give patient p.r.n. alprazolam. 5. 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 I have counseled the patient on the need to eventually get off the Afrin. Dr. Gee apparently has told him the same thing; however for right now given his chronic obstructive pulmonary disease exacerbation, it is probably not the wisest time to withdraw him on that, so continue in the hospital. 6. Deep venous thrombosis prophylaxis. The patient is on Lovenox subcu. 7. Acute renal failure, possibly due to dehydration. We will encourage oral fluid intake and monitor. 8. History of benign prostatic hyperplasia. We will continue the patient's Flomax. 9. He can follow up with Urology as an outpatient intermittent hematuria. CODE STATUS: I did discuss this with the patient. He states that he would not want any chest compressions or shocks, but he is okay with intubation for chronic obstructive pulmonary disease flares if needed like last year, so he is intubation only. Should he be incapacitated, his medical power of personal injury attorney is his son, Eliezer Lin. Job ID: [id number]
[2019-08-31] MEDS ORDERED: Acetaminophen 325 MG TAB PO PRN ×2 (15:59→16:06)
[2019-08-31] MEDS ORDERED: Ondansetron ODT 4 MG TAB SL PRN (15:59)
[2019-08-31] MEDS ORDERED: Ondansetron PF 4 MG/2 ML Vial IVP PRN ×2 (15:59→16:06)
[2019-08-31] MEDS ORDERED: Senokot S 8.6-50 MG TAB PO PRN (16:06)
[2019-08-31] MEDS ORDERED: ALPRAZolam 0.5 MG TAB PO PRN (16:06)
[2019-08-31] MEDS ORDERED: Acetaminophen 650 MG Suppository PR PRN (16:06)
[2019-08-31] MEDS ORDERED: Ondansetron ODT 4 MG TAB PO PRN (16:06)
[2019-08-31] MEDS ORDERED: Guaifenesin DM 100-10/5 ML UDCUP PO PRN (16:06)
[2019-08-31 16:27] VITALS: BMI 28.7
--- NOTE | 2019-08-31 16:53 | CON ---
DATE OF CONSULTATION: HISTORY OF PRESENT ILLNESS: An 79-year-old gentleman, who sees Dr. Gee, presented to the ER with flare up of his COPD. He said for the last week, he is having shortness of breath and cough without any fever or chills. He lives with his daughter. On a regular day, he can barely walk even 20 feet without getting markedly short of breath. Former smoker. PAST MEDICAL HISTORY: Hypertension, COPD, anxiety, BPH, GI bleed, previous alcohol abuse up to 30 a day history. Quit smoking 5 years ago. PAST SURGICAL HISTORY: Shoulder and appendix. HOME MEDICATIONS: 1. Prednisone. 2. DuoNeb. 3. Pepcid. 4. Aspirin. 5. Norvasc 5. 6. Xanax 0.5. ALLERGIES: NONE. SOCIAL HISTORY: Unremarkable. FAMILY HISTORY: Unremarkable. REVIEW OF SYSTEMS: Ten point negative. PHYSICAL EXAMINATION: GENERAL: He is in mild distress, using some accessory muscles. VITAL SIGNS: Sats are 90% on room air, temperature 98, pulse 85, respirations 20, blood pressure 140/80. CHEST: Decreased breath sounds. No wheezing. CARDIAC: Normal S1, S2. No gallop. ABDOMEN: No mass. LABORATORY DATA: White count 11,000, H and H 15 and 45, platelet count is normal. PO2 of 90, pCO2 of 32, BUN 39, , creatinine 1.3. X-ray was clear. Troponin is normal. IMPRESSION: 1. Chronic obstructive pulmonary disease exacerbation. 2. Bronchitis. 3. Mild azotemia. 4. Hypertension. 5. Anxiety. PLAN: I agree with present treatment, steroids, neb treatments, supportive care, empiric antibiotics probably by mouth. We will notify Dr. Gee. TIME SPENT: This is a 70-minute consultation note, 50% in direct patient care. Job ID: [id number]
[2019-08-31] MEDS: methylPREDNISolone Sod Succ 40 MG VIAL IVP SCH ×2 (18:00→23:47)
[2019-08-31] MEDS: Tamsulosin HCl 0.4 MG CAP PO SCH (20:50)
[2019-08-31] MEDS ORDERED: methylPREDNISolone Sod Succ 40 MG VIAL IVP SCH (21:00)
[2019-09-01 04:55] LABS: #Lymphocytes 0.6 thou/uL (1.20-3.40); #Monocytes 0.2 thou/uL (0.11-0.59); #Neutrophils 9.3 thou/uL (1.40-6.50); %Eosinophils 0.4 % (0.0-10.0); %Lymphocytes 6.3 % (21.0-51.0); %Monocytes 1.9 % (0.0-10.0); %Neutrophils 91.4 % (42.0-75.0); Hemoglobin 13.3 g/dL (14.0-18.0); Mean Corpuscular HGB CONC 33.7 g/dL (32.0-36.0); Mean Corpuscular Volume 94.9 fL (78.0-98.0); Mean Platelet Volume 7.3 fL (7.4-10.4); Platelet Count 261 thou/uL (130-400); RBC Distribution Width 13.2 % (11.5-14.5); Red Blood Cell (RBC) Count 4.15 mill/uL (4.70-6.10); White Blood Cell (WBC) Count 10.1 thou/uL (4.8-10.8)
[2019-09-01 05:11] LABS: Anion Gap 13 mmol/L (10-20); BUN (Urea Nitrogen) 29 mg/dL (8.4-25.7); Calc. Creatinine Clearance 49 mL/min (70-130); Calcium 9.4 mg/dL (7.8-10.44); Carbon Dioxide 23 mmol/L (23-31); Chloride 105 mmol/L (98-107); Estimated GFR-MDRD 48; Glucose 156 mg/dL (83-110); Potassium 4.5 mmol/L (3.5-5.1); Sodium 136 mmol/L (136-145)
[2019-09-01] MEDS: methylPREDNISolone Sod Succ 40 MG VIAL IVP SCH (05:22)
[2019-09-01] MEDS ORDERED: predniSONE 20 MG TAB PO SCH (08:30)
--- NOTE | 2019-09-01 08:36 | PRG ---
DATE OF SERVICE: 09/01/2019 SUBJECTIVE: Weston Lin appears to be at his baseline. OBJECTIVE: VITAL SIGNS: Temperature 98, pulse 94, respiratory rate 15, saturations are 98% on room air, and blood pressure 142/67. CHEST: No wheezing or crackles. CARDIAC: Normal S1 and S2. No gallops. ABDOMEN: No masses. ASSESSMENT: 1. Chronic obstructive pulmonary disease exacerbation. 2. Bronchitis. 3. Major anxiety. 4. Azotemia. PLAN: He is stable enough to switch to oral medication. Home in the next 24 to 48 hours. Job ID: [id number]
[2019-09-01] MEDS: Polyethylene Glycol 3350 17 GM Packet PO SCH (09:16)
[2019-09-01] MEDS: Aspirin Chewable 81 MG TAB PO SCH (09:17)
[2019-09-01] MEDS: Enoxaparin Sodium 40 MG/0.4 ML SYRINGE SC SCH (09:18)
[2019-09-01] MEDS: Doxycycline 100 MG CAP PO SCH ×2 (09:22→20:32)
[2019-09-01] MEDS ORDERED: traZODone HCl 50 MG TAB PO PRN (17:23)
[2019-09-01] MEDS ORDERED: ALPRAZolam 0.25 MG TAB PO PRN (17:23)
--- NOTE | 2019-09-01 18:32 | PDOC.HOSPP ---
- Subjective Encounter Date: 09/01/19 Encounter Time: 11:55 Subjective: pt up in bed still feels sob but better than when he came in. - Objective Vital Signs & Weight: Vital Signs (12 hours) Temp Pulse Pulse Pulse Pulse Resp BP 09/01/19 16:00 98.3 F 102 H 16 09/01/19 11:48 98.1 F 93 18 09/01/19 10:43 91 96 136/63 09/01/19 09:41 103 H 100 148/65 H 09/01/19 07:40 98.2 F 94 15 09/01/19 06:54 70 14 BP BP BP BP Pulse Ox Pulse Ox Pulse Ox 09/01/19 16:00 151/65 H 95 09/01/19 11:48 126/63 94 L 09/01/19 10:43 140/65 96 91 L 09/01/19 09:41 152/69 H 99 100 09/01/19 07:40 142/67 H 94 L 09/01/19 06:54 Pulse Ox 09/01/19 16:00 09/01/19 11:48 09/01/19 10:43 96 09/01/19 09:41 09/01/19 07:40 09/01/19 06:54 Weight Weight 183 lb 9.6 oz I&O: 08/31/19 09/01/19 09/02/19 06:59 06:59 06:59 Intake Total 1020 1080 Output Total 650 900 Balance 370 180 Result Diagrams: 09/01/19 04:32 09/01/19 04:32 Hospitalist ROS - Review of Systems Respiratory: reports: shortness of breath Cardiovascular: denies: chest pain, palpitations, orthopnea, paroxysmal noc. dyspnea, edema, light headedness, other Genitourinary: denies: dysuria, frequency, incontinence, hematuria, retention, other Musculoskeletal: denies: neck pain, shoulder pain, arm pain, back pain, hand pain, leg pain, foot pain, other - Medication Medications: Active Medications Generic Name Dose Route Start Last Admin Trade Name Freq PRN Reason Stop Dose Admin Albuterol/Ipratropium 3 ml 08/31/19 19:00 09/01/19 12:27 Duoneb NEB 3 ml [id number] TIMI Administration Aspirin 81 mg 09/01/19 09:00 09/01/19 09:17 Aspirin Chewable PO 81 mg QAM TIMI Administration Doxycycline Hyclate 100 mg 09/01/19 09:00 09/01/19 09:22 Vibramycin PO 09/06/19 09:01 100 mg BID TIMI Administration Enoxaparin Sodium 40 mg 09/01/19 09:00 09/01/19 09:18 Lovenox SC 40 mg 0900 TIMI Administration Pantoprazole Sodium 40 mg 09/01/19 09:00 09/01/19 09:17 Protonix PO 40 mg DAILY TIMI Administration Polyethylene Glycol 17 gm 09/01/19 09:00 09/01/19 09:16 Miralax PO 17 gm DAILY TIMI Administration Tamsulosin HCl 0.4 mg 08/31/19 21:00 08/31/19 20:50 Flomax PO 0.4 mg HS TIMI Administration - Exam Neck: negative: supple, symmetric, no JVD, no thyromegaly, no lymphadenopathy, no carotid bruit, JVD Heart: negative: RRR, no murmur, no gallops, no rubs, normal peripheral pulses, irregular, diminshed peripheral pulses, murmur present, II/IV, III/IV Respiratory: negative: CTAB, no wheezes, no rales, no ronchi, normal chest expansion, no tachypnea, normal percussion, rales, rhonchi, tachypneic, wheezes Gastrointestinal: negative: soft, non-tender, non-distended, normal bowel sounds , no palpable masses, no hepatomegaly, no splenomegaly, no bruit, no guarding, no rigidity, tender to palpation, distended, diminished bowl sounds, voluntary guarding Hosp A/P (1) BPH (benign prostatic hyperplasia) Code(s): N40.0 - BENIGN PROSTATIC HYPERPLASIA WITHOUT LOWER URINRY TRACT SYMP Status: Acute (2) COPD exacerbation Code(s): J44.1 - CHRONIC OBSTRUCTIVE PULMONARY DISEASE W (ACUTE) EXACERBATION Status: Acute (3) CAD (coronary artery disease) Code(s): I25.10 - ATHSCL HEART DISEASE OF [place] CORONARY ARTERY W/O ANG PCTRS Status: Chronic (4) Hypertension Code(s): I10 - ESSENTIAL (PRIMARY) HYPERTENSION Status: Chronic - Plan will continue steroids and abx for now. he is not on oxygen at home. He states that his activity is minimal. I recommended that he walk to see if he drops his oxygen if so he may need oxygen on ambulation which may improve his sob on mobility.
[2019-09-01] MEDS: Mometasone/Formoterol 120 PUFF INHALER INH SCH (19:28)
[2019-09-01] MEDS: Tamsulosin HCl 0.4 MG CAP PO SCH (20:32)
[2019-09-02] MEDS: Mometasone/Formoterol 120 PUFF INHALER INH SCH ×2 (06:51→18:50)
[2019-09-02 08:25] LABS: #Eosinphils 0.1 thou/uL (0.0-0.7); #Monocytes 0.9 thou/uL (0.11-0.59); #Neutrophils 10.5 thou/uL (1.40-6.50); %Basophils 0.1 % (0.0-1.0); %Eosinophils 0.4 % (0.0-10.0); %Lymphocytes 14.6 % (21.0-51.0); %Monocytes 6.4 % (0.0-10.0); %Neutrophils 78.5 % (42.0-75.0); Hemoglobin 13.2 g/dL (14.0-18.0); Mean Corpuscular HGB CONC 32.5 g/dL (32.0-36.0); Mean Corpuscular Hemoglobin 31.6 pg (27.0-31.0); Mean Corpuscular Volume 97.2 fL (78.0-98.0); Mean Platelet Volume 7.4 fL (7.4-10.4); Platelet Count 260 thou/uL (130-400); RBC Distribution Width 13.6 % (11.5-14.5); Red Blood Cell (RBC) Count 4.17 mill/uL (4.70-6.10); White Blood Cell (WBC) Count 13.4 thou/uL (4.8-10.8)
[2019-09-02 08:38] LABS: Anion Gap 12 mmol/L (10-20); BUN (Urea Nitrogen) 32 mg/dL (8.4-25.7); Calc. Creatinine Clearance 45 mL/min (70-130); Calcium 9.2 mg/dL (7.8-10.44); Carbon Dioxide 25 mmol/L (23-31); Chloride 106 mmol/L (98-107); Estimated GFR-MDRD 44; Glucose 104 mg/dL (83-110); Sodium 139 mmol/L (136-145)
[2019-09-02] MEDS: Doxycycline 100 MG CAP PO SCH ×2 (08:46→21:06)
[2019-09-02] MEDS: Tamsulosin HCl 0.4 MG CAP PO SCH ×2 (08:46→21:06)
[2019-09-02] MEDS: Aspirin Chewable 81 MG TAB PO SCH (08:46)
[2019-09-02] MEDS: predniSONE 20 MG TAB PO SCH (08:46)
[2019-09-02] MEDS: Polyethylene Glycol 3350 17 GM Packet PO SCH (08:47)
[2019-09-02] MEDS: Enoxaparin Sodium 40 MG/0.4 ML SYRINGE SC SCH (08:47)
--- NOTE | 2019-09-02 09:17 | PRG ---
DATE OF SERVICE: 09/02/2019 SUBJECTIVE: This morning, he is awake, alert, and responsive. He said he is not much better. OBJECTIVE: VITAL SIGNS: His temperature is 97, pulse , saturations 96% on room air, blood pressure . CHEST: No wheezing. CARDIAC: Normal S1 and S2. No gallops. ABDOMEN: No masses. LABORATORY DATA: Creatinine is 1.53. Otherwise, labs unremarkable. ASSESSMENT AND PLAN: Chronic obstructive pulmonary disease exacerbation, bronchitis. All cultures negative. It appears the patient may be at his baseline. I have nothing to offer additionally. He can be discharged to home any time. Follow up with Dr. Gee. Job ID: [id number]
--- NOTE | 2019-09-02 16:25 | PDOC.HOSPP ---
- Subjective Encounter Date: 09/02/19 Encounter Time: 10:00 Subjective: pt up in bed states his still feels sob - Objective Vital Signs & Weight: Vital Signs (12 hours) Temp Pulse Pulse Pulse Resp BP BP 09/02/19 15:54 98.3 F 100 18 09/02/19 14:24 107 H 102 H 174/71 H 143/67 H 09/02/19 12:33 107 H 16 09/02/19 11:50 98.1 F 83 18 09/02/19 08:42 97.8 F 70 18 09/02/19 06:54 09/02/19 06:53 83 16 09/02/19 06:51 83 16 BP BP Pulse Ox Pulse Ox Pulse Ox 09/02/19 15:54 141/62 H 96 09/02/19 14:24 96 96 09/02/19 12:33 93 L 09/02/19 11:50 105/53 L 97 09/02/19 08:42 114/57 L 96 09/02/19 06:54 95 09/02/19 06:53 95 09/02/19 06:51 95 Weight Weight 183 lb 3.2 oz I&O: 09/01/19 09/02/19 09/03/19 06:59 06:59 06:59 Intake Total 1020 1380 Output Total 650 1600 Balance 370 -220 Result Diagrams: 09/02/19 08:01 09/02/19 08:01 Hospitalist ROS - Review of Systems Respiratory: reports: shortness of breath Cardiovascular: denies: chest pain, palpitations, orthopnea, paroxysmal noc. dyspnea, edema, light headedness, other Gastrointestinal: denies: nausea, vomiting, abdominal pain, diarrhea, constipation, melena, hematochezia, other Genitourinary: denies: dysuria, frequency, incontinence, hematuria, retention, other - Medication Medications: Active Medications Generic Name Dose Route Start Last Admin Trade Name Freq PRN Reason Stop Dose Admin Albuterol/Ipratropium 3 ml 08/31/19 19:00 09/02/19 12:33 Duoneb NEB 3 ml [id number] TIMI Administration Aspirin 81 mg 09/01/19 09:00 09/02/19 08:46 Aspirin Chewable PO 81 mg QAM TIMI Administration Doxycycline Hyclate 100 mg 09/01/19 09:00 09/02/19 08:46 Vibramycin PO 09/06/19 09:01 100 mg BID TIMI Administration Enoxaparin Sodium 40 mg 09/01/19 09:00 09/02/19 08:47 Lovenox SC 40 mg 0900 TIMI Administration Mometasone Furoate/Formoterol Fumar 2 puff 09/01/19 18:30 09/02/19 06:51 Dulera 200 Mcg/5 Mcg Inhaler INH 2 puff BID-RT TIMI Administration Pantoprazole Sodium 40 mg 09/01/19 09:00 09/02/19 08:46 Protonix PO 40 mg DAILY TIMI Administration Polyethylene Glycol 17 gm 09/01/19 09:00 09/02/19 08:47 Miralax PO Not Given DAILY TIMI Prednisone 40 mg 09/02/19 08:00 09/02/19 08:46 Prednisone PO 40 mg QAM-WM TIMI Administration Tamsulosin HCl 0.4 mg 08/31/19 21:00 09/01/19 20:32 Flomax PO 0.4 mg HS TIMI Administration Tamsulosin HCl 0.4 mg 09/02/19 09:00 09/02/19 08:46 Flomax PO 0.4 mg DAILY TIMI Administration Trazodone HCl 50 mg 09/01/19 17:23 09/01/19 20:32 Desyrel PO 50 mg HS PRN Administration Insomnia - Exam Neck: negative: supple, symmetric, no JVD, no thyromegaly, no lymphadenopathy, no carotid bruit, JVD Heart: negative: RRR, no murmur, no gallops, no rubs, normal peripheral pulses, irregular, diminshed peripheral pulses, murmur present, II/IV, III/IV Respiratory - other findings: decreased breath sound all over Gastrointestinal: negative: soft, non-tender, non-distended, normal bowel sounds , no palpable masses, no hepatomegaly, no splenomegaly, no bruit, no guarding, no rigidity, tender to palpation, distended, diminished bowl sounds, voluntary guarding Hosp A/P (1) BPH (benign prostatic hyperplasia) Code(s): N40.0 - BENIGN PROSTATIC HYPERPLASIA WITHOUT LOWER URINRY TRACT SYMP Status: Acute (2) COPD exacerbation Code(s): J44.1 - CHRONIC OBSTRUCTIVE PULMONARY DISEASE W (ACUTE) EXACERBATION Status: Acute (3) CAD (coronary artery disease) Code(s): I25.10 - ATHSCL HEART DISEASE OF [place] CORONARY ARTERY W/O ANG PCTRS Status: Chronic (4) Hypertension Code(s): I10 - ESSENTIAL (PRIMARY) HYPERTENSION Status: Chronic (5) MUKESH (acute kidney injury) Code(s): N17.9 - ACUTE KIDNEY FAILURE, UNSPECIFIED Status: Resolved - Plan will continue steroids and abx for now. he is not on oxygen at home. He states that his activity is minimal. I recommended that he walk to see if he drops his oxygen if so he may need oxygen on ambulation which may improve his sob on mobility. 3/4 will continue current steroids for now and abx. possible home in am. will see if he needs oxygen on ambulation. pt's creatinine has been labile will monitor. He is not on any nephrotoxins. possible discharge in the next 24-48hr
[2019-09-03 04:41] LABS: #Lymphocytes 1.4 thou/uL (1.20-3.40); #Monocytes 0.7 thou/uL (0.11-0.59); #Neutrophils 8.6 thou/uL (1.40-6.50); %Basophils 0.2 % (0.0-1.0); %Eosinophils 0.4 % (0.0-10.0); %Lymphocytes 13.1 % (21.0-51.0); %Monocytes 6.3 % (0.0-10.0); %Neutrophils 80.1 % (42.0-75.0); Hemoglobin 11.7 g/dL (14.0-18.0); Mean Corpuscular HGB CONC 32.4 g/dL (32.0-36.0); Mean Corpuscular Hemoglobin 31.5 pg (27.0-31.0); Mean Corpuscular Volume 97.1 fL (78.0-98.0); Mean Platelet Volume 7.8 fL (7.4-10.4); Platelet Count 207 thou/uL (130-400); RBC Distribution Width 13.4 % (11.5-14.5); Red Blood Cell (RBC) Count 3.71 mill/uL (4.70-6.10); White Blood Cell (WBC) Count 10.7 thou/uL (4.8-10.8)
[2019-09-03 05:36] LABS: Anion Gap 11 mmol/L (10-20); BUN (Urea Nitrogen) 41 mg/dL (8.4-25.7); Calc. Creatinine Clearance 43 mL/min (70-130); Calcium 8.5 mg/dL (7.8-10.44); Carbon Dioxide 25 mmol/L (23-31); Chloride 108 mmol/L (98-107); Estimated GFR-MDRD 40; Glucose 112 mg/dL (83-110); Potassium 3.9 mmol/L (3.5-5.1); Sodium 140 mmol/L (136-145)
[2019-09-03] MEDS: Mometasone/Formoterol 120 PUFF INHALER INH SCH ×2 (06:39→18:54)
[2019-09-03] MEDS: Doxycycline 100 MG CAP PO SCH ×2 (09:22→20:30)
[2019-09-03] MEDS: Enoxaparin Sodium 40 MG/0.4 ML SYRINGE SC SCH (09:22)
[2019-09-03] MEDS: ALPRAZolam 0.25 MG TAB PO PRN (09:23)
[2019-09-03] MEDS: predniSONE 20 MG TAB PO SCH (09:23)
[2019-09-03] MEDS: Polyethylene Glycol 3350 17 GM Packet PO SCH (09:24)
[2019-09-03] MEDS: Aspirin Chewable 81 MG TAB PO SCH (09:24)
[2019-09-03] MEDS: Tamsulosin HCl 0.4 MG CAP PO SCH ×2 (09:24→20:30)
--- NOTE | 2019-09-03 09:41 | PRG ---
DATE OF SERVICE: 09/03/2019 SUBJECTIVE: This morning, he said he is somewhat better. OBJECTIVE: VITAL SIGNS: Saturations are 98% on room air, respirations 16, pulse 95, temperature 98, and blood pressure 137/74. CHEST: Decreased breath sounds without any wheezing. CARDIAC: Normal S1 and S2. No gallops. ABDOMEN: No masses. LABORATORY DATA: Unremarkable. Creatinine is 1.66 at his baseline, probably slightly azotemic. ASSESSMENT: 1. Chronic obstructive pulmonary disease exacerbation. 2. Bronchitis. 3. Renal failure, pulmonary lynn, home anytime. Follow up with Dr. Gee. Job ID: [id number]
--- NOTE | 2019-09-03 12:03 | PDOC.HOSPP ---
- Subjective Encounter Date: 09/03/19 Encounter Time: 08:00 Subjective: Pt seen for followup re: acute on chronic renal failure. Feels slightly better. - Objective Vital Signs & Weight: Vital Signs (12 hours) Temp Pulse Resp BP BP Pulse Ox 09/03/19 11:58 88 18 159/71 H 99 09/03/19 08:00 98.0 F 95 16 137/74 98 09/03/19 06:42 95 09/03/19 06:41 82 16 95 09/03/19 06:39 73 16 97 09/03/19 04:00 98.0 F 82 18 127/59 L 95 09/03/19 00:05 92 16 95 Weight Weight 189 lb 9.6 oz I&O: 09/02/19 09/03/19 09/04/19 06:59 06:59 06:59 Intake Total 1380 2330 Output Total 1600 890 Balance -220 1440 Result Diagrams: 09/03/19 04:09 09/03/19 04:09 Additional Labs: Labs and MARs reviewed by me EKG Reviewed by me: Yes (Tele: NSR) Hospitalist ROS - Review of Systems Respiratory: reports: SOB with excertion Cardiovascular: denies: chest pain, palpitations, orthopnea, paroxysmal noc. dyspnea, edema, light headedness Gastrointestinal: denies: nausea, vomiting, abdominal pain, diarrhea, constipation, melena, hematochezia - Medication Medications: Active Medications Generic Name Dose Route Start Last Admin Trade Name Freq PRN Reason Stop Dose Admin Albuterol/Ipratropium 3 ml 08/31/19 19:00 09/03/19 06:41 Duoneb NEB 3 ml [id number] TIMI Administration Alprazolam 0.25 mg 08/31/19 16:06 09/03/19 09:23 Xanax PO 0.25 mg [id number] PRN Administration Anxiety Aspirin 81 mg 09/01/19 09:00 09/03/19 09:24 Aspirin Chewable PO 81 mg QAM TIMI Administration Doxycycline Hyclate 100 mg 09/01/19 09:00 09/03/19 09:22 Vibramycin PO 09/06/19 09:01 100 mg BID TIMI Administration Enoxaparin Sodium 40 mg 09/01/19 09:00 09/03/19 09:22 Lovenox SC 40 mg 0900 TIMI Administration Mometasone Furoate/Formoterol Fumar 2 puff 09/01/19 18:30 09/03/19 06:39 Dulera 200 Mcg/5 Mcg Inhaler INH 2 puff BID-RT TIMI Administration Pantoprazole Sodium 40 mg 09/01/19 09:00 09/03/19 09:24 Protonix PO 40 mg DAILY TIIM Administration Polyethylene Glycol 17 gm 09/01/19 09:00 09/03/19 09:24 Miralax PO 17 gm DAILY TIMI Administration Prednisone 40 mg 09/02/19 08:00 09/03/19 09:23 Prednisone PO 40 mg QAM-WM TIMI Administration Tamsulosin HCl 0.4 mg 08/31/19 21:00 09/02/19 21:06 Flomax PO 0.4 mg HS TIMI Administration Tamsulosin HCl 0.4 mg 09/02/19 09:00 09/03/19 09:24 Flomax PO 0.4 mg DAILY TIMI Administration Trazodone HCl 50 mg 09/01/19 17:23 09/01/19 20:32 Desyrel PO 50 mg HS PRN Administration Insomnia - Exam General Appearance: awake alert Eye: anicteric sclera ENT: moist mucosa Neck: supple Heart: RRR, no rubs Respiratory: CTAB Gastrointestinal: soft, non-tender Extremities: no cyanosis Psychiatric: normal affect, normal behavior Hosp A/P - Plan - Assessment (1) Acute on Chronic stage 3 renal failure. Status: Acute (2) COPD exacerbation Code(s): J44.1 - CHRONIC OBSTRUCTIVE PULMONARY DISEASE W (ACUTE) EXACERBATION Status: Acute (3) CAD (coronary artery disease) Code(s): I25.10 - ATHSCL HEART DISEASE OF [place] CORONARY ARTERY W/O ANG PCTRS Status: Chronic (4) Hypertension Code(s): I10 - ESSENTIAL (PRIMARY) HYPERTENSION Status: Chronic (5) BPH (benign prostatic hyperplasia) Code(s): N40.0 - BENIGN PROSTATIC HYPERPLASIA WITHOUT LOWER URINRY TRACT SYMP Status: Chronic - Plan Consult nephrology. COPD exac improved. Check renal US. HTN [id number].
--- NOTE | 2019-09-03 12:11 | ULT ---
BILATERAL RENAL ULTRASOUND: Date: 09/03/2019 HISTORY: 79-year-old male with acute kidney injury. FINDINGS: The right kidney measures 10.9 cm in length and the left kidney measures 10.8 cm in length. Bilateral cysts are seen, the largest on the right measuring 3.4 cm and on the left measuring 3.8 cm. No hydro nephrosis seen on either side. The urinary bladder volume is 36 mL. The prostate is enlarged, measuring 4.7 x 5.2 x 4.9 cm, with mas s effect on the urinary bladder. IMPRESSION: 1. Bilateral renal cysts. 2. Enlarged prostate with mass effect on the urinary bladder. Cystoscopy would be helpful. POS: [facility]
--- NOTE | 2019-09-04 01:16 | CON ---
DATE OF CONSULTATION: 09/03/2019 CONSULTING PHYSICIAN: Dr. Caputo. REASON FOR CONSULTATION: Acute kidney injury. REASON FOR ADMISSION: Shortness of breath. HISTORY OF PRESENT ILLNESS: This is an 79-year-old male with history of COPD, hypertension, BPH, came to the hospital with worsening shortness of breath and he was found to have acute kidney injury. Nephrology is consulted. The patient is having some prostate issues and he was supposed to see Dr. Allen and could not make it because of his COPD exacerbation, he had come into the hospital. Patient is complaining of some hesitancy and poor urine flow. No pain. No fever, chills, or cramps. PAST MEDICAL HISTORY: Positive for COPD, hypertension, BPH, GERD, allergic rhinitis. PAST SURGICAL HISTORY: Appendectomy, left hip surgery. HOME MEDICATIONS: 1. Aspirin. 2. Prednisone. 3. Albuterol. 4. Amlodipine. 5. Flomax. ALLERGIES: NO KNOWN DRUG ALLERGIES. SOCIAL HISTORY: No smoking, alcohol, or drugs. FAMILY HISTORY: No history of kidney disease. Positive for diabetes, hypertension. REVIEW OF SYSTEMS: The following complete review of systems was negative, unless otherwise mentioned in the HPI or below: Constitutional: Weight loss or gain, ability to conduct usual activities. Skin: Rash, itching. Eyes: Double vision, pain. ENT/Mouth: Nose bleeding, neck stiffness, pain, tenderness. Cardiovascular: Palpitations, dyspnea on exertion, orthopnea. Respiratory: Shortness of breath, wheezing, cough, hemoptysis, fever or night sweats. Gastrointestinal: Poor appetite, abdominal pain, heartburn, nausea, vomiting, constipation, or diarrhea. Genitourinary: Urgency, frequency, dysuria, nocturia. Musculoskeletal: Pain, swelling. Neurologic/Psychiatric: Anxiety, depression. Allergy/Immunologic: Skin rash, bleeding tendency. PHYSICAL EXAMINATION: GENERAL: This is a well-built male, in no apparent distress. VITAL SIGNS: Temperature , pulse 110, respiratory rate 16, blood pressure 171/70. HEENT: Atraumatic, normocephalic. Oral mucosa is moist. NECK: Supple. CV: S1 and S2 heard. Regular rate and rhythm. RESPIRATORY: Clear. GASTROINTESTINAL: Abdomen is soft. MUSCULOSKELETAL: 1+ edema. DERMATOLOGIC: No skin rash. NEUROLOGIC: Alert and awake. PSYCHIATRIC: Mood and affect normal. LABORATORY DATA: Potassium 3.9, BUN is 41, and creatinine is 1.6. ASSESSMENT AND PLAN: 1. Acute kidney injury with gradual worsening renal function, ultrasound with prostate enlargement. Would have Urology input. The patient is presenting with prostate symptoms and urinary symptoms. No hydronephrosis reported. Avoid nephrotoxins. Hydration if tolerated. 2. Edema, controlled. 3. Benign prostatic hyperplasia. Continue on Flomax. Patient refused to have catheterization at this point. We will defer to Urology, Urology consult placed for the morning. He was supposed to see Dr. Allen. 4. History of hypertension. Continue home medications. 5. Titrate as needed. 6. We will continue to monitor renal function. Job ID: [id number]
[2019-09-04 04:46] LABS: #Eosinphils 0.1 thou/uL (0.0-0.7); #Lymphocytes 1.7 thou/uL (1.20-3.40); #Monocytes 0.8 thou/uL (0.11-0.59); #Neutrophils 8.6 thou/uL (1.40-6.50); %Basophils 0.3 % (0.0-1.0); %Eosinophils 0.6 % (0.0-10.0); %Lymphocytes 14.7 % (21.0-51.0); %Monocytes 7.4 % (0.0-10.0); Hemoglobin 12.5 g/dL (14.0-18.0); Mean Corpuscular HGB CONC 33.2 g/dL (32.0-36.0); Mean Corpuscular Volume 96.2 fL (78.0-98.0); Mean Platelet Volume 7.6 fL (7.4-10.4); Platelet Count 225 thou/uL (130-400); RBC Distribution Width 13.3 % (11.5-14.5); Red Blood Cell (RBC) Count 3.92 mill/uL (4.70-6.10); White Blood Cell (WBC) Count 11.2 thou/uL (4.8-10.8)
[2019-09-04 05:05] LABS: Anion Gap 9 mmol/L (10-20); BUN (Urea Nitrogen) 29 mg/dL (8.4-25.7); Calc. Creatinine Clearance 61 mL/min (70-130); Calcium 8.9 mg/dL (7.8-10.44); Carbon Dioxide 25 mmol/L (23-31); Chloride 108 mmol/L (98-107); Estimated GFR-MDRD 59; Glucose 89 mg/dL (83-110); Potassium 4.2 mmol/L (3.5-5.1); Sodium 138 mmol/L (136-145)
[2019-09-04] MEDS: Mometasone/Formoterol 120 PUFF INHALER INH SCH (07:20)
[2019-09-04] MEDS: Enoxaparin Sodium 40 MG/0.4 ML SYRINGE SC SCH (09:18)
[2019-09-04] MEDS: Doxycycline 100 MG CAP PO SCH (09:19)
[2019-09-04] MEDS: predniSONE 20 MG TAB PO SCH (09:19)
[2019-09-04] MEDS: Polyethylene Glycol 3350 17 GM Packet PO SCH (09:20)
[2019-09-04] MEDS: Aspirin Chewable 81 MG TAB PO SCH (09:20)
[2019-09-04] MEDS: Tamsulosin HCl 0.4 MG CAP PO SCH (09:20)
--- NOTE | 2019-09-04 09:56 | PRG ---
DATE OF SERVICE: 09/04/2019 SUBJECTIVE: He said he wants to go home today to my surprise. OBJECTIVE: VITAL SIGNS: Temperature 97, pulse 66, respirations 16, saturations are 98% on room air, blood pressure 130/66. CHEST: No wheezing. CARDIAC: Normal S1 and S2. No gallops. IMPRESSION AND PLAN: Chronic obstructive pulmonary disease exacerbation, bronchitis, mild azotemia. Disposition as per primary care physician. We will follow at a distance. He needs to follow up with Dr. Gee on outpatient basis. Job ID: [id number]
[2019-09-04] MEDS: ALPRAZolam 0.25 MG TAB PO PRN (12:34)
[2019-09-04 14:07] VITALS: BP 160/86; TEMP 98
--- NOTE | 2019-09-04 20:10 | PRG ---
DATE OF SERVICE: 09/04/2019 SUBJECTIVE: Patient was seen and examined at bedside and overnight events noted. Patient denies any shortness of breath or chest pain or palpitation. No history of nausea or vomiting or diarrhea or fever or chills or cramps. OBJECTIVE: GENERAL: This is a well-built male, in no apparent distress. VITAL SIGNS: Temperature 97.7. Heart Rate 84. Respiratory rate 16. Blood pressure 154/74. HEENT: Atraumatic, normocephalic. Oral mucosa is moist. NECK: Supple. CARDIOVASCULAR: S1, S2 heard. Rate and rhythm regular. RESPIRATORY: Clear to auscultation. GASTROINTESTINAL: Abdomen is soft. MUSCULOSKELETAL: No tenderness. No edema. DERMATOLOGIC: No skin rash. NEUROLOGIC: Alert and awake and oriented x3. No focal neurologic deficits. Moving all the extremities. PSYCHIATRIC: Mood and affect normal. LABORATORY DATA: Potassium 4.2, BUN is 29, creatinine is 1.1. ASSESSMENT AND PLAN: 1. Acute kidney injury, much better. 2. Edema, controlled. 3. BPH. 4. History of hypertension. The patient needs to follow up with Urology and also Nephrology. Avoid nephrotoxins. We will follow. Job ID: [id number]
--- NOTE | 2019-09-05 02:05 | DIS ---
DATE OF ADMISSION: 08/31/2019 DATE OF DISCHARGE: 09/04/2019 PRIMARY CARE PROVIDER: Dr. Zaida Gomez. DISCHARGE DIAGNOSES: 1. Chronic obstructive pulmonary disease exacerbation. 2. Bronchitis. 3. Acute on chronic stage 3 renal failure. CONDITION OF PATIENT ON THE DAY OF DISCHARGE: Stable. I assessed Mr. Lin on the day of discharge. He denies any chest pain or shortness of breath. Vital signs are stable. S1 and S2 are heard, regular. Lungs are clear to auscultation bilaterally. CONSULTATIONS DURING THIS HOSPITALIZATION: Pulmonology, Dr. Barron and Nephrology, Dr. Maria. HOSPITAL COURSE: Mr. Lin is a pleasant 79-year-old gentleman, who was admitted to [facility] on 08/31/2019, for COPD exacerbation. He improved with oxygen, steroids, bronchodilators, and antibiotics. He was also seen by Nephrology Service for acute on chronic renal failure. He refused Shah catheterization. Renal ultrasound showed bilateral renal cysts and enlarged prostate with mass effect on the urinary bladder. The patient was advised urology consultation. He reported that he has urology appointment as outpatient and he will follow up. He has been advised to keep that appointment. His renal function returned to baseline by the day of discharge. DISCHARGE MEDICATIONS: 1. Ventolin HFA p.r.n. 2. Alprazolam p.r.n. 3. Symbicort 160/4.5 two puffs 2 times a day. 4. Flomax 0.4 mg daily. 5. Trazodone 50 mg at bedtime as needed. 6. Doxycycline 100 mg 2 times a day for 7 more days. 7. Oral prednisone taper. LABORATORY DATA: Please note that on the day of discharge, he has white count 48673, hemoglobin 12.5, platelet count 225,000. Sodium of 138, potassium 4.2, and creatinine 1.18. POST ACUTE CARE FOLLOWUP: With Urology Service in 1 week and with his assistant to the dean in 2 weeks and with primary care provider on 09/07/2019, at 4:00 pm. ACTIVITY: No restrictions. DIET: Heart healthy diet. Many thanks for allowing me to participate in your patient's care. Please feel free to contact me with any questions or concerns. DISCHARGE DESTINATION: Home. TIME SPENT: Total amount of time spent coordinating this discharge: 32 minutes. Job ID: [id number]
== END 2019-09-04 13:02 | disposition home or self-care (01) | DRG 191 ==
LOC: ERS 08:48 → ERHOLD 11:38 → 2NO 15:52
PROVIDERS: ADMIT Emergency Medicine; ATTEND Internal Medicine
DX: J44.1 Chronic obstructive pulmonary disease with (acute) exacerbation (principal); N17.9 Acute kidney failure, unspecified; N18.3 Chronic kidney disease, stage 3 (moderate); N28.1 Cyst of kidney, acquired; N32.9 Bladder disorder, unspecified; N40.0 Benign prostatic hyperplasia without lower urinary tract symptoms; K21.9 Gastro-esophageal reflux disease without esophagitis; Z87.891 Personal history of nicotine dependence; Z82.49 Family history of ischemic heart disease and other diseases of the circulatory system; Z83.3 Family history of diabetes mellitus; Z90.49 Acquired absence of other specified parts of digestive tract; F41.9 Anxiety disorder, unspecified; E86.0 Dehydration; I12.9 Hypertensive chronic kidney disease with stage 1 through stage 4 chronic kidney disease, or unspecified chronic kidney disease; I25.10 Atherosclerotic heart disease of native coronary artery without angina pectoris; F32.9 Major depressive disorder, single episode, unspecified
CPT/HCPCS: 36415; 71046; 76770; 80048; 80053; 82553; 82805; 83605; 84484; 85025; 87040; 93005; 94640; 96365; 96366; 96375; J1650; J1956; J2920; J2930; J7512; J7611; J7620

== ENCOUNTER 2019-12-07 14:32 | Inpatient (IN) | payer MEDICARE ==
[2019-12-07 15:02] LABS: #Eosinphils 0.1 thou/uL (0.0-0.7); #Lymphocytes 0.8 thou/uL (1.20-3.40); #Monocytes 0.4 thou/uL (0.11-0.59); #Neutrophils 14.8 thou/uL (1.40-6.50); %Basophils 0.1 % (0.0-1.0); %Eosinophils 0.5 % (0.0-10.0); %Lymphocytes 4.7 % (21.0-51.0); %Monocytes 2.3 % (0.0-10.0); %Neutrophils 92.5 % (42.0-75.0); Hemoglobin 12.3 g/dL (14.0-18.0); Mean Corpuscular HGB CONC 32.5 g/dL (32.0-36.0); Mean Corpuscular Hemoglobin 31.2 pg (27.0-31.0); Mean Corpuscular Volume 95.8 fL (78.0-98.0); Mean Platelet Volume 7.4 fL (7.4-10.4); Platelet Count 355 thou/uL (130-400); RBC Distribution Width 14.1 % (11.5-14.5); Red Blood Cell (RBC) Count 3.96 mill/uL (4.70-6.10); White Blood Cell (WBC) Count 16.1 thou/uL (4.8-10.8)
[2019-12-07 15:09] LABS: INR-International Normal Ratio 0.9; Prothrombin Time 12.3 sec (12.0-14.7)
[2019-12-07 15:29] LABS: ALT (SGPT) 16 U/L (8-55); AST (SGOT) 13 U/L (5-34); Albumin 3.4 g/dL (3.4-4.8); Alkaline Phosphatase 84 U/L (40-110); Anion Gap 12 mmol/L (10-20); BUN (Urea Nitrogen) 19 mg/dL (8.4-25.7); Bilirubin, Total 0.3 mg/dL (0.2-1.2); Calc. Creatinine Clearance 0 mL/min (70-130); Calcium 9.4 mg/dL (7.8-10.44); Carbon Dioxide 21 mmol/L (23-31); Chloride 111 mmol/L (98-107); Estimated GFR-MDRD 60; Globulin 2.6 g/dL (2.4-3.5); Glucose 126 mg/dL (83-110); Potassium 4.3 mmol/L (3.5-5.1); Sodium 140 mmol/L (136-145)
[2019-12-07] MEDS ORDERED: Cefepime 2 GM VIAL ONE (17:03)
[2019-12-07] MEDS ORDERED: Ondansetron ODT 4 MG TAB PO PRN (18:08)
[2019-12-07] MEDS ORDERED: Acetaminophen 650 MG Suppository PR PRN (18:08)
[2019-12-07] MEDS ORDERED: Ondansetron PF 4 MG/2 ML Vial IVP PRN (18:08)
[2019-12-07] MEDS ORDERED: Acetaminophen 325 MG TAB PO PRN (18:08)
[2019-12-07] MEDS ORDERED: PROVENTIL INHALER 6.7 G (200 INHALATIONS) INH PRN (18:48)
[2019-12-07] MEDS ORDERED: Mometasone 200 MCG/Formoterol 5 MCG 120 PUFF INHALER INH SCH (19:00)
--- NOTE | 2019-12-07 19:11 | HP ---
TIME OF ASSESSMENT: 1700 hours. PRIMARY CARE PHYSICIAN: Zaida Gomez MD CHIEF COMPLAINT: Left hand pain and swelling. HISTORY OF PRESENT ILLNESS: Mr. Lin is an 79-year-old gentleman, who presented to the emergency department due to left hand swelling and pain since December 01. The patient states he often experiences easy bruising, but has not experienced the amount of swelling or redness and pain. The patient does not recall any injury to his hand. He has not had any wounds or bites. He complains of pain when he makes a fist, stating that his left hand feels very tight. He denies any altered sensation. He has noted the swelling extending up his forearm. Denies having any fevers or chills. No nausea or vomiting. He feels very well overall otherwise. The patient denies having any infection like this before. He noted the swelling was getting worse once he realized he was having a difficult time removing his rings. He was able to remove them and that did help to ease some of the discomfort. PAST MEDICAL HISTORY: 1. GERD. 2. COPD. 3. Anxiety. PAST SURGICAL HISTORY: 1. Appendectomy. 2. Left shoulder surgery. 3. Cataract surgery. SOCIAL HISTORY: The patient lives at home with his family. He drinks socially weekly, but denies any heavy daily alcohol consumption. He denies any current tobacco use. He states he quit 5 years ago and previously smoked cigarettes for about 30 years. Denies any illicit drug use. He states his daughter lives with him. PHYSICAL EXAMINATION: GENERAL: The patient appears well developed, well nourished, and is in no acute distress. He does appear to be breathless when speaking, but states this is chronic for him. He does not use any oxygen at home. VITAL SIGNS: Temperature 97.7, pulse 80, blood pressure 160/68, respirations 20, O2 saturation 99% on room air. HEENT: Normocephalic and atraumatic. Pupils are equal, round, and reactive to light. Sclerae are icteric. Oropharynx is clear. NECK: Supple. LUNGS: Clear to auscultation bilaterally without any wheezes, rales, or rhonchi. CARDIAC: Regular rate and rhythm without audible murmurs, rubs, or gallops. ABDOMEN: Soft, obese, nontender, nondistended. Normoactive bowel sounds present. EXTREMITIES: Lower extremities notable for +1 pitting edema bilaterally, slightly worse on the right. Peripheral pulses normal. Left hand notable for swelling on the dorsal aspect with erythema. Full range of motion. Sensation intact. Some slight swelling extending to the elbow with some +1 dependent pitting edema just below the left elbow. NEUROLOGIC: Alert and oriented x3. No neuro deficits on exam. SKIN: Frail with several areas of ecchymosis, but no open wounds present. LABORATORY DATA: White count 16.1, hemoglobin 12.3, hematocrit 38, platelets 355, neutrophils 92.5. PT 12.3, INR 0.9. Sodium 140, potassium 4.3, BUN 19, creatinine 1.17, GFR 60, glucose 126, calcium 9.4, total bilirubin 0.3, AST 13, ALT 16, alkaline phosphatase 84. IMPRESSION AND PLAN: Mr. Lin is an 79-year-old gentleman, presenting with left hand redness and swelling since last Saturday and is being admitted for management of the followin. Left hand cellulitis. The patient with elevated white count of 16.1. He has been started on IV antibiotics with vancomycin and cefepime, which we will continue. The patient remains afebrile. When discussing imaging to evaluate for osteomyelitis, the patient refused. He states every time he comes to the hospital, he is billed for studies and visits with other doctors that he feels is not necessary. The patient is agreeable to be admitted and continue with IV antibiotics. 2. Chronic obstructive pulmonary disease, unchanged. The patient is breathless at baseline and states he does not feel any worse than he normally does. No wheezing on exam. Saturations are normal. We will resume his inhalers and nebulizer treatments. 3. Gastroesophageal reflux disease. We will manage with famotidine until home medications are verified. 4. Deep venous thrombosis prophylaxis. SACHIN hose stockings. Walking program consulted. 5. Code status, full. The patient states his surrogate decision maker is his daughter, Amanda Lin. Case was discussed with Dr. Holt, who agrees with plan of care as described above. Job ID: [id number]
[2019-12-07 19:51] VITALS: BMI 30.7
[2019-12-07 20:17] LABS: Lactic Acid 2.7 mmol/L (0.5-2.2)
[2019-12-08] MEDS: Cefepime 2 GM in Sodium Chloride 0.9% 100 ML IVPB SCH ×2 (05:24→15:59)
[2019-12-08 06:26] LABS: #Basophils 0.1 thou/uL (0.0-0.2); #Eosinphils 0.1 thou/uL (0.0-0.7); #Lymphocytes 1.7 thou/uL (1.20-3.40); #Monocytes 0.7 thou/uL (0.11-0.59); #Neutrophils 9.7 thou/uL (1.40-6.50); %Basophils 0.7 % (0.0-1.0); %Eosinophils 0.5 % (0.0-10.0); %Lymphocytes 13.6 % (21.0-51.0); %Monocytes 5.7 % (0.0-10.0); %Neutrophils 79.6 % (42.0-75.0); Hemoglobin 11.5 g/dL (14.0-18.0); Mean Corpuscular HGB CONC 33.9 g/dL (32.0-36.0); Mean Corpuscular Hemoglobin 32.1 pg (27.0-31.0); Mean Corpuscular Volume 94.5 fL (78.0-98.0); Mean Platelet Volume 7.6 fL (7.4-10.4); Platelet Count 301 thou/uL (130-400); White Blood Cell (WBC) Count 12.2 thou/uL (4.8-10.8)
[2019-12-08] MEDS: Mometasone 200 MCG/Formoterol 5 MCG 120 PUFF INHALER INH SCH ×2 (06:36→19:05)
[2019-12-08 06:41] LABS: Anion Gap 9 mmol/L (10-20); BUN (Urea Nitrogen) 24 mg/dL (8.4-25.7); Calc. Creatinine Clearance 59 mL/min (70-130); Calcium 9.1 mg/dL (7.8-10.44); Carbon Dioxide 25 mmol/L (23-31); Chloride 112 mmol/L (98-107); Estimated GFR-MDRD 57; Glucose 98 mg/dL (83-110); Potassium 3.9 mmol/L (3.5-5.1); Sodium 142 mmol/L (136-145)
[2019-12-08] MEDS ORDERED: traZODone HCl 50 MG TAB PO PRN (14:28)
[2019-12-08] MEDS: traMADol HCl 50 MG TAB PO PRN (14:37)
[2019-12-08] MEDS: Acetaminophen 325 MG TAB PO SCH ×2 (14:45→20:34)
--- NOTE | 2019-12-08 16:48 | CON ---
DATE OF CONSULTATION: 12/08/2019 REASON FOR CONSULTATION: Left hand inflammatory process. HISTORY OF PRESENT ILLNESS: An 79-year-old who has a history of COPD, CKD stage 3, hypertension, and coronary artery disease, who came in with worsening left hand swelling, which started about a week before the admission and became progressively worse. 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 No headaches, fever, or chills. The usual dyspnea from his COPD. No abdominal pain or diarrhea. No genitourinary symptoms. Apparently, 2 days before, he had taken a course of doxycycline and currently on 10 mg of prednisone daily. MEDICAL HISTORY: 1. GERD. 2. COPD. 3. Hypertension. 4. Coronary artery disease. SURGICAL HISTORY: 1. Appendectomy. 2. Shoulder surgery. SOCIAL HISTORY: Lives in the area. Former smoker, quit 5 years ago. ALLERGIES: NO KNOWN DRUG ALLERGIES. CURRENT MEDICATIONS: 1. P.r.n. medications. 2. Cefepime. 3. DuoNeb. 4. Zofran. 5. Dulera. 6. Vancomycin. FAMILY HISTORY: Noncontributory. PHYSICAL EXAMINATION: VITAL SIGNS: Normal. O2 saturations are 96 on room air. GENERAL: Does not appear in distress, although he is a little bit tachypneic. SKIN: Left hand with erythema. There is marked tenderness around the 3rd MPJ and extensor tendon area. He has difficulty in closing the hand because of the inflammatory process. He does not have tenderness in the palmar surface. It is all in the dorsal aspect. The 1st, 2nd, 4th, and 5th MPJs are not tender. No lymphadenopathy. HEENT: Ocular movements conjugate. Oral cavity is not remarkable. The patient has no [place] teeth left. NECK: Supple. No jugular vein distention. LUNGS: Diminished lung sounds. No wheezing or crackles. HEART: Diminished heart sounds. ABDOMEN: Soft, not distended or tender. No ascites. No bladder distention. EXTREMITIES: No other joint inflammatory process noted. Pulses are 1+ in the radialis and dorsalis pedis. No edema. NEUROLOGIC: Cognitive function appears to be intact. LABORATORY DATA: White cell count 16,000 down to 12.2, hemoglobin 12, platelets 355, and 92% neutrophils, sodium 140, glucose 126. Lactic acid 2.7. Liver profile normal. No samples or cultures appear to have been drawn this admission. IMAGING STUDIES: No imaging studies. ASSESSMENT: 1. Chronic obstructive pulmonary disease. 2. Hypertension. 3. Chronic kidney disease. 4. Acute inflammatory process of 3rd left metacarpophalangeal joint/tendon. DISCUSSION: Differential diagnosis includes crystal-induced arthropathy, either gout or pseudogout versus infection. He may have been bacteremic and then settled in this joint, although this is not usually the scenario that we see both the bacteremia as well had onto the sternoclavicular joint, the hips, knees, or lower back area. I do not see a uric acid measurement in the past, so we will go ahead and submit a uric acid and check x-rays of the left hand. May need an MRI and submit blood cultures if not submitted yet. Job ID: [id number] [id number]
--- NOTE | 2019-12-08 17:41 | PDOC.HOSPP ---
- Subjective Encounter Date: 12/08/19 Encounter Time: 17:41 Subjective: Patient seen and examined for Sepsis. Some improvement of Left hand erythema. Pain controlled. No N/V/fever. No new complaints. No overnight events - Objective Vital Signs & Weight: Vital Signs (12 hours) Temp Pulse Resp BP Pulse Ox 12/08/19 12:03 97.8 F 64 18 139/69 96 12/08/19 08:00 96 12/08/19 07:12 98.0 F 82 20 125/70 96 12/08/19 06:36 82 16 95 12/08/19 05:46 97.7 F 67 18 130/59 L 95 Weight Weight 190 lb 5 oz Result Diagrams: 12/08/19 06:02 12/08/19 06:02 Radiology Reviewed by me: Yes (hand XR - reviewed) Hospitalist ROS - Review of Systems Respiratory: denies: cough, dry, shortness of breath, hemoptysis, SOB with excertion, pleuritic pain, sputum, wheezing, other Cardiovascular: denies: chest pain, palpitations, orthopnea, paroxysmal noc. dyspnea, edema, light headedness, other Gastrointestinal: denies: nausea, vomiting, abdominal pain, diarrhea, constipation, melena, hematochezia, other - Medication Medications: Active Medications Generic Name Dose Route Start Last Admin Trade Name Freq PRN Reason Stop Dose Admin Acetaminophen 650 mg 12/07/19 18:08 12/08/19 05:27 Tylenol PO 650 mg Q4H PRN Administration Headache/Fever/Mild Pain (1-3) Acetaminophen 650 mg 12/08/19 15:00 12/08/19 14:45 Tylenol PO Not Given TID TIMI Cefepime HCl 2 gm/ Sodium 100 mls @ 200 mls/hr 12/08/19 05:00 12/08/19 15:59 Chloride IVPB 100 mls 0500,1700 TIMI Administration Mometasone Furoate/Formoterol Fumar 2 puff 12/08/19 06:30 12/08/19 06:36 Dulera 200 Mcg/5 Mcg Inhaler INH 2 puff BID-RT TIMI Administration Tramadol HCl 50 mg 12/08/19 14:27 12/08/19 14:37 Ultram PO 50 mg Q6H PRN Administration Moderate Pain (4-6) - Exam General Appearance: NAD Heart: RRR, no gallops, no rubs, normal peripheral pulses Respiratory: no wheezes, no rales, no ronchi, normal chest expansion Gastrointestinal: soft, non-tender, non-distended, normal bowel sounds Extremities: no cyanosis, no clubbing, no edema (LE) Extremities - other findings: Erythema with tenderness of Left hand Neurological: no new deficit Psychiatric: normal affect, A&O x 3 Hosp A/P - Plan Sepsis due to Rt hand cellulitis Lactic acidosis Obesity BMI 30.7 CKD 2 Chronic Anemia prob due to nutritional def GERD Anxiety COPD BPH PLAN: Cont IV Vancomycin Monitor Vanc level Cont IV Cefepime ID input appreciated Cont Nebs PRN AM labs Recheck Lactic acid in AM Blood cultures sent today.
[2019-12-08] MEDS: Vancomycin HCl 1.25 GM in Sodium Chloride 0.9% 250 ML 250 ML IVPB SCH (17:44)
--- NOTE | 2019-12-08 20:30 | RAD ---
LEFT HAND TWO VIEWS: 12/08/19 HISTORY: Pain, swelling. Mild degenerative change at the first carpometacarpal joint. The MCP joints show mild narrowing with minimal degenerative change. IP joints show mild joint narrowing and degenerative change. No fracture or acute osseous lesions. IMPRESSION: Degenerative joint changes as described. POS: [facility]
[2019-12-09] MEDS: traMADol HCl 50 MG TAB PO PRN (06:00)
[2019-12-09] MEDS: Cefepime 2 GM in Sodium Chloride 0.9% 100 ML IVPB SCH ×2 (06:01→16:37)
[2019-12-09 06:20] LABS: #Eosinphils 0.1 thou/uL (0.0-0.7); #Lymphocytes 1.5 thou/uL (1.20-3.40); #Monocytes 0.6 thou/uL (0.11-0.59); #Neutrophils 9.7 thou/uL (1.40-6.50); %Basophils 0.4 % (0.0-1.0); %Eosinophils 0.5 % (0.0-10.0); %Lymphocytes 12.7 % (21.0-51.0); %Monocytes 5.1 % (0.0-10.0); %Neutrophils 81.3 % (42.0-75.0); Hemoglobin 12.7 g/dL (14.0-18.0); Mean Corpuscular HGB CONC 32.4 g/dL (32.0-36.0); Mean Corpuscular Hemoglobin 31.1 pg (27.0-31.0); Mean Corpuscular Volume 96.1 fL (78.0-98.0); Mean Platelet Volume 7.3 fL (7.4-10.4); Platelet Count 341 thou/uL (130-400); RBC Distribution Width 14.2 % (11.5-14.5); Red Blood Cell (RBC) Count 4.09 mill/uL (4.70-6.10); White Blood Cell (WBC) Count 11.9 thou/uL (4.8-10.8)
[2019-12-09] MEDS ORDERED: Budesonide 0.5 MG/2 ML NEB NEB SCH (06:30)
[2019-12-09 06:38] LABS: Lactic Acid 0.9 mmol/L (0.5-2.2)
[2019-12-09 06:43] LABS: ALT (SGPT) 16 U/L (8-55); AST (SGOT) 14 U/L (5-34); Albumin 3.2 g/dL (3.4-4.8); Alkaline Phosphatase 86 U/L (40-110); Anion Gap 10 mmol/L (10-20); BUN (Urea Nitrogen) 26 mg/dL (8.4-25.7); Bilirubin, Total 0.4 mg/dL (0.2-1.2); CRP (Inflammatory) 2.54 mg/dL (= or < 0.5); Calc. Creatinine Clearance 60 mL/min (70-130); Calcium 9.1 mg/dL (7.8-10.44); Carbon Dioxide 27 mmol/L (23-31); Chloride 109 mmol/L (98-107); Estimated GFR-MDRD 58; Globulin 2.7 g/dL (2.4-3.5); Glucose 88 mg/dL (83-110); Potassium 4.2 mmol/L (3.5-5.1); Protein, Total 5.9 g/dL (5.8-8.1); Sodium 142 mmol/L (136-145)
[2019-12-09] MEDS: Mometasone 200 MCG/Formoterol 5 MCG 120 PUFF INHALER INH SCH ×2 (07:19→17:49)
[2019-12-09] MEDS: Acetaminophen 325 MG TAB PO SCH ×3 (08:36→20:14)
[2019-12-09] MEDS: Saccharomyces boulardii 250 MG CAP PO SCH (08:37)
[2019-12-09] MEDS: ALPRAZolam 0.25 MG TAB PO PRN (11:00)
[2019-12-09] MEDS ORDERED: Polyethylene Glycol 3350 17 GM Packet PO SCH (11:45)
[2019-12-09] MEDS ORDERED: predniSONE 5 MG TAB PO SCH (12:00)
--- NOTE | 2019-12-09 12:00 | PDOC.HOSPP ---
- Subjective Encounter Date: 12/09/19 Encounter Time: 10:45 Subjective: Patient seen and examined for Left hand cellulitis. Erythema/swelling improving. No fever or chills. No new complaints. No overnight events - Objective Vital Signs & Weight: Vital Signs (12 hours) Temp Pulse Resp BP Pulse Ox 12/09/19 11:01 98.1 F 77 20 107/57 L 94 L 12/09/19 07:19 79 16 92 L 12/09/19 07:03 98.0 F 76 20 152/76 H 95 12/09/19 04:00 97.9 F 82 18 136/69 94 L 12/09/19 00:00 98.1 F 85 18 124/72 94 L Weight Weight 190 lb 5 oz I&O: 12/08/19 12/09/19 12/10/19 06:59 06:59 06:59 Intake Total 1200 Balance 1200 Result Diagrams: 12/09/19 06:03 12/09/19 06:03 Radiology Reviewed by me: Yes (Left hand XR - DJD) Hospitalist ROS - Review of Systems Respiratory: denies: cough, dry, shortness of breath, hemoptysis, SOB with excertion, pleuritic pain, sputum, wheezing, other Cardiovascular: denies: chest pain, palpitations, orthopnea, paroxysmal noc. dyspnea, edema, light headedness, other Gastrointestinal: reports: constipation. denies: nausea, vomiting, abdominal pain, diarrhea, melena, hematochezia, other - Medication Medications: Active Medications Generic Name Dose Route Start Last Admin Trade Name Freq PRN Reason Stop Dose Admin Acetaminophen 650 mg 12/07/19 18:08 12/08/19 05:27 Tylenol PO 650 mg Q4H PRN Administration Headache/Fever/Mild Pain (1-3) Acetaminophen 650 mg 12/08/19 15:00 12/09/19 08:36 Tylenol PO 650 mg TID TIMI Administration Alprazolam 0.25 mg 12/08/19 14:28 12/09/19 11:00 Xanax PO 0.25 mg TIDPRN PRN Administration Anxiety Cefepime HCl 2 gm/ Sodium 100 mls @ 200 mls/hr 12/08/19 05:00 12/09/19 06:01 Chloride IVPB 100 mls 0500,1700 TIMI Administration Vancomycin HCl 1.25 gm/ Sodium 250 mls @ 166.667 mls/hr 12/08/19 18:00 17:44 Chloride IVPB 250 mls 1800 TIMI Administration Mometasone Furoate/Formoterol Fumar 2 puff 12/08/19 06:30 12/09/19 07:19 Dulera 200 Mcg/5 Mcg Inhaler INH 2 puff BID-RT TIMI Administration Ondansetron HCl 4 mg 12/07/19 18:08 12/09/19 08:46 Zofran IVP 4 mg Q6H PRN Administration Nausea/Vomiting Saccharomyces Boulardii 250 mg 12/09/19 09:00 12/09/19 08:37 Florastor PO 250 mg DAILY TIMI Administration Tramadol HCl 50 mg 12/08/19 14:27 12/09/19 06:00 Ultram PO 50 mg Q6H PRN Administration Moderate Pain (4-6) - Exam General Appearance: NAD Neck: supple, no JVD Heart: no gallops, no rubs Respiratory: no wheezes, no rales, no ronchi Gastrointestinal: non-tender, non-distended, normal bowel sounds Extremities: no cyanosis, no clubbing Extremities - other findings: improving tenderness of 3rd MCP Hosp A/P - Plan DVT proph w/SCDs Sepsis due to Rt hand cellulitis Lactic acidosis - improved Obesity BMI 30.7 CKD 2 Chronic Anemia prob due to nutritional def GERD Anxiety COPD on chronic steroids BPH Constipation PLAN: Cont IV Vancomycin with Cefepime Monitor Vancomycin level ID following change Nebs to schedule per pt req Add Miralax Cont Prednisone Taper per Dr Gee - Restart Prednisone 5 mg daily after taper AM labs Blood cultures pending - sent on 12/07
--- NOTE | 2019-12-09 15:13 | PQF ---
DATE: 12-09-19 ATTN: DR. DANIEL HENDERSON Please exercise your independent, professional judgment in responding to the clarification form. Clinical indicators are provided on the bottom of this form for your review Diagnosis: SEPSIS Present on Admission (POA): [x ] Yes [ ] No [ ] Unable to determine For continuity of documentation, please document condition throughout progress notes and discharge summary. Thank You. CLINICAL INDICATORS - SIGNS / SYMPTOMS / LABS/ RSULTS AND LOCATION IN MR: ER DX 12-07-19: L HAND CELLULITIS PN DR. HENDERSON 12-08-19: PT SEEN AND EXAMINED FOR SEPSIS DUE TO RT HAND CELLULITIS WBC: 12-07-19: 16.1 12-08-19: 12.2 12-09-19: 11.9 LACTIC ACID: 12-07-19: 2.7 RISK FACTORS / RSULTS AND LOCATION IN MR: PN DR. HENDERSON 12-08-19: PT SEEN AND EXAMINED FOR SEPSIS DUE TO RT HAND CELLULITIS TREATMENT / RSULTS AND LOCATION IN MR: ER NOTES 12-07-19: VANCOMYCIN IV, CEFEPIME IV (This form is maintained as a part of the permanent medical record) 2014 [employer]. All Rights Reserved DANIEL [email or web address] [email or web address]
--- NOTE | 2019-12-09 16:12 | PRG ---
DATE OF SERVICE: 12/09/2019 SUBJECTIVE: About the same, no improvement in the pain in the left hand. No respiratory symptoms or abdominal pain. No diarrhea. OBJECTIVE: VITAL SIGNS: He has stayed afebrile. LUNGS: Clear. HEART: S1 and S2, regular rate. ABDOMEN: Soft. EXTREMITIES: Left hand with inflammatory change, I believe was the fourth MCP, that is pretty much for all the inflammatory processes restricted to. LABORATORY DATA: White cell count 11.9, hemoglobin 12.7, platelets 341. Uric acid was 5.6. CRP 2.54. Hand x-ray just showed degenerative arthritis. ASSESSMENT AND DISCUSSION: Hypertension, chronic kidney disease, chronic obstructive pulmonary disease, and fourth MCP inflammatory process. In view of lack of improvement with antimicrobials, we will try some colchicine and see if that helps. If that helps, then we will stop the antimicrobials. Job ID: [id number]
[2019-12-09] MEDS: Calcium Carbonate 600 MG + Vit D TAB PO SCH (16:39)
[2019-12-09 17:28] LABS: Vancomycin, Trough 12.5 ug/mL
[2019-12-09] MEDS: Vancomycin HCl 1.25 GM in Sodium Chloride 0.9% 250 ML 250 ML IVPB SCH (17:57)
[2019-12-09] MEDS: Famotidine 20 MG TAB PO SCH (20:14)
[2019-12-09] MEDS: Tamsulosin HCl 0.4 MG CAP PO SCH (20:14)
[2019-12-09] MEDS: Colchicine 0.6 MG TAB PO SCH (20:14)
[2019-12-09] MEDS: Polyethylene Glycol 3350 17 GM Packet PO SCH (20:14)
[2019-12-10] MEDS: Cefepime 2 GM in Sodium Chloride 0.9% 100 ML IVPB SCH (04:43)
[2019-12-10 06:40] LABS: #Lymphocytes 1.1 thou/uL (1.20-3.40); #Monocytes 0.6 thou/uL (0.11-0.59); #Neutrophils 9.3 thou/uL (1.40-6.50); %Basophils 0.1 % (0.0-1.0); %Eosinophils 0.4 % (0.0-10.0); %Lymphocytes 9.6 % (21.0-51.0); %Monocytes 5.1 % (0.0-10.0); %Neutrophils 84.8 % (42.0-75.0); Hemoglobin 10.1 g/dL (14.0-18.0); Mean Corpuscular HGB CONC 32.6 g/dL (32.0-36.0); Mean Corpuscular Hemoglobin 30.7 pg (27.0-31.0); Mean Corpuscular Volume 94.3 fL (78.0-98.0); Mean Platelet Volume 7.6 fL (7.4-10.4); Platelet Count 284 thou/uL (130-400)
[2019-12-10 07:02] LABS: Anion Gap 11 mmol/L (10-20); BUN (Urea Nitrogen) 36 mg/dL (8.4-25.7); Calc. Creatinine Clearance 49 mL/min (70-130); Calcium 8.7 mg/dL (7.8-10.44); Carbon Dioxide 24 mmol/L (23-31); Chloride 110 mmol/L (98-107); Estimated GFR-MDRD 46; Glucose 108 mg/dL (83-110); Potassium 4.5 mmol/L (3.5-5.1); Sodium 140 mmol/L (136-145)
[2019-12-10] MEDS ORDERED: predniSONE 20 MG TAB PO SCH (08:00)
[2019-12-10] MEDS: Famotidine 20 MG TAB PO SCH ×2 (08:24→22:13)
[2019-12-10] MEDS: Calcium Carbonate 600 MG + Vit D TAB PO SCH ×2 (08:24→17:13)
[2019-12-10] MEDS: Acetaminophen 325 MG TAB PO SCH ×3 (08:24→22:14)
[2019-12-10] MEDS: predniSONE 5 MG TAB PO SCH (08:25)
[2019-12-10] MEDS: Saccharomyces boulardii 250 MG CAP PO SCH (08:25)
[2019-12-10] MEDS: Colchicine 0.6 MG TAB PO SCH ×2 (08:25→22:13)
[2019-12-10] MEDS: Polyethylene Glycol 3350 17 GM Packet PO SCH ×2 (08:26→22:18)
[2019-12-10] MEDS: Multivit, Therapeutic 1 TAB PO SCH (08:26)
[2019-12-10] MEDS: ALPRAZolam 0.25 MG TAB PO PRN (08:30)
[2019-12-10] MEDS: Mometasone 200 MCG/Formoterol 5 MCG 120 PUFF INHALER INH SCH ×2 (08:53→19:48)
--- NOTE | 2019-12-10 16:19 | PRG ---
DATE OF SERVICE: 12/10/2019 SUBJECTIVE: The patient is feeling much better over the past 24 hours. He is able to close his hand now. Still not back to normal, but certainly at least 50% better. No diarrhea. No respiratory symptoms. OBJECTIVE: VITAL SIGNS: He has been afebrile. LUNGS: Clear. HEART: S1 and S2. Regular rate. EXTREMITIES: Left hand with less swelling, less erythema, less tenderness. LABORATORY DATA: Blood culture negative. ASSESSMENT AND DISCUSSION: 1. Hypertension, chronic. 2. Chronic kidney disease. 3. Chronic obstructive pulmonary disease. 4. Fourth metacarpophalangeal inflammatory process. Clear-cut response to colchicine. We will go ahead and discontinue antimicrobials and continue colchicine. May be discharged tomorrow on colchicine with a presumptive diagnosis of pseudogout or gout. Job ID: [id number]
--- NOTE | 2019-12-10 18:17 | PDOC.HOSPP ---
- Subjective Encounter Date: 12/10/19 Encounter Time: 09:00 Subjective: Pt seen for followup re: left hand pain. Feels slightly better. - Objective Vital Signs & Weight: Vital Signs (12 hours) Temp Pulse Resp BP Pulse Ox 12/10/19 15:47 97.9 F 83 16 119/67 96 12/10/19 14:45 105 H 20 90 L 12/10/19 11:32 78 16 95 12/10/19 11:07 98.0 F 78 136 H 116/63 95 12/10/19 10:50 80 20 90 L 12/10/19 08:54 95 16 90 L 12/10/19 08:53 95 16 90 L 12/10/19 07:53 98.0 F 92 18 121/69 93 L Weight Weight 190 lb 5 oz I&O: 12/09/19 12/10/19 12/11/19 06:59 06:59 06:59 Intake Total 1200 2080 1480 Balance 1200 2080 1480 Result Diagrams: 12/10/19 06:02 12/10/19 06:02 Additional Labs: labs and MARs reviewed by nd Hospitalist ROS - Review of Systems Cardiovascular: denies: chest pain, palpitations, orthopnea, paroxysmal noc. dyspnea, edema, light headedness Musculoskeletal: reports: hand pain. denies: neck pain, shoulder pain, arm pain , back pain, leg pain, foot pain - Medication Medications: Active Medications Generic Name Dose Route Start Last Admin Trade Name Freq PRN Reason Stop Dose Admin Acetaminophen 650 mg 12/07/19 18:08 12/08/19 05:27 Tylenol PO 650 mg Q4H PRN Administration Headache/Fever/Mild Pain (1-3) Acetaminophen 650 mg 12/08/19 15:00 12/10/19 14:52 Tylenol PO 650 mg TID TIMI Administration Albuterol/Ipratropium 3 ml 12/09/19 15:00 12/10/19 14:45 Duoneb NEB 3 ml QID-RT TIMI Administration Alprazolam 0.25 mg 12/08/19 14:28 12/10/19 08:30 Xanax PO 0.25 mg TIDPRN PRN Administration Anxiety Calcium/Vitamin D 1 tab 12/09/19 17:00 12/10/19 17:13 Caltrate 600 + Vit D PO 1 tab BID-WM TIMI Administration Colchicine 0.6 mg 12/09/19 21:00 12/10/19 08:25 Colchicine PO 0.6 mg BID TIMI Administration Famotidine 20 mg 12/09/19 21:00 12/10/19 08:24 Pepcid PO 20 mg BID TIMI Administration Mometasone Furoate/Formoterol Fumar 2 puff 12/08/19 06:30 12/10/19 08:53 Dulera 200 Mcg/5 Mcg Inhaler INH 2 puff BID-RT TIMI Administration Multivitamins 1 tab 12/10/19 09:00 12/10/19 08:26 Theragran PO 1 tab DAILY TIMI Administration Ondansetron HCl 4 mg 12/07/19 18:08 12/09/19 08:46 Zofran IVP 4 mg Q6H PRN Administration Nausea/Vomiting Polyethylene Glycol 17 gm 12/09/19 21:00 12/10/19 08:26 Miralax PO 17 gm BID TIMI Administration Prednisone 10 mg 12/10/19 08:00 12/10/19 08:25 Prednisone PO 12/12/19 08:01 10 mg QAM-WM TIMI Administration Saccharomyces Boulardii 250 mg 12/09/19 09:00 12/10/19 08:25 Florastor PO 250 mg DAILY TIMI Administration Tamsulosin HCl 0.4 mg 12/09/19 21:00 12/09/19 20:14 Flomax PO 0.4 mg HS TIMI Administration Tramadol HCl 50 mg 12/08/19 14:27 12/09/19 06:00 Ultram PO 50 mg Q6H PRN Administration Moderate Pain (4-6) - Exam General - other findings: Obese Eye: anicteric sclera ENT: moist mucosa Neck: supple Heart: RRR Respiratory: CTAB, no wheezes Gastrointestinal: soft, non-tender Extremities - other findings: Tenderness over left 4th MCP Skin - other findings: Erythema over L 4th MCP Psychiatric: normal affect, normal behavior Hosp A/P - Plan ASSESSMENT: L hand gout Obesity BMI 30.7 CKD 2 Chronic Anemia prob due to nutritional def GERD Anxiety COPD on chronic steroids BPH Constipation Lactic acidosis - improved Sepsis ruled out Cellulitis ruled out PLAN: Antibiotics discontinued Colchicine trial ID following Continue nebs Cont Prednisone Taper per Dr Gee - Restart Prednisone 5 mg daily after taper Blood cultures negative so far
[2019-12-10] MEDS: Tamsulosin HCl 0.4 MG CAP PO SCH (22:13)
[2019-12-11] MEDS: ALPRAZolam 0.25 MG TAB PO PRN (05:47)
[2019-12-11] MEDS: traMADol HCl 50 MG TAB PO PRN (05:48)
[2019-12-11] MEDS: Mometasone 200 MCG/Formoterol 5 MCG 120 PUFF INHALER INH SCH (06:58)
[2019-12-11 08:38] LABS: #Eosinphils 0.3 thou/uL (0.0-0.7); #Lymphocytes 1.2 thou/uL (1.20-3.40); #Monocytes 0.4 thou/uL (0.11-0.59); %Basophils 0.3 % (0.0-1.0); %Lymphocytes 12.4 % (21.0-51.0); %Monocytes 4.4 % (0.0-10.0); Hemoglobin 10.3 g/dL (14.0-18.0); Mean Corpuscular HGB CONC 32.7 g/dL (32.0-36.0); Mean Corpuscular Hemoglobin 31.3 pg (27.0-31.0); Mean Corpuscular Volume 95.9 fL (78.0-98.0); Mean Platelet Volume 6.9 fL (7.4-10.4); Platelet Count 245 thou/uL (130-400); Red Blood Cell (RBC) Count 3.27 mill/uL (4.70-6.10)
[2019-12-11] MEDS: Polyethylene Glycol 3350 17 GM Packet PO SCH (08:39)
[2019-12-11] MEDS: Calcium Carbonate 600 MG + Vit D TAB PO SCH (08:40)
[2019-12-11] MEDS: predniSONE 5 MG TAB PO SCH (08:40)
[2019-12-11] MEDS: Colchicine 0.6 MG TAB PO SCH (08:40)
[2019-12-11] MEDS: Saccharomyces boulardii 250 MG CAP PO SCH (08:41)
[2019-12-11] MEDS: Multivit, Therapeutic 1 TAB PO SCH (08:41)
[2019-12-11] MEDS: Famotidine 20 MG TAB PO SCH (08:41)
[2019-12-11] MEDS: Acetaminophen 325 MG TAB PO SCH ×2 (08:41→14:37)
[2019-12-11 08:58] LABS: Anion Gap 7 mmol/L (10-20); BUN (Urea Nitrogen) 29 mg/dL (8.4-25.7); Calc. Creatinine Clearance 59 mL/min (70-130); Calcium 9.3 mg/dL (7.8-10.44); Carbon Dioxide 29 mmol/L (23-31); Chloride 108 mmol/L (98-107); Estimated GFR-MDRD 58; Glucose 144 mg/dL (83-110); Potassium 4.4 mmol/L (3.5-5.1); Sodium 140 mmol/L (136-145)
[2019-12-11 14:54] VITALS: BP 134/56; TEMP 97.6
--- NOTE | 2019-12-12 04:02 | DIS ---
DATE OF ADMISSION: 12/07/2019 DATE OF DISCHARGE: 12/11/2019 PRIMARY CARE PROVIDER: Dr. Gomez. DISCHARGE DIAGNOSES: 1. Gout flare. 2. Acute on chronic renal failure, stage 2. 3. Sepsis, ruled out. 4. Cellulitis, ruled out. CONDITION OF PATIENT ON THE DAY OF DISCHARGE: Stable. I assessed Mr. Lin on the day of discharge. He denies any chest pain or shortness of breath. Vital signs are stable. S1 and S2 are heard, regular. Lungs are clear to auscultation bilaterally. CONSULTATIONS DURING THIS HOSPITALIZATION: Infectious diseases, Dr. Espinoza. DISCHARGE MEDICATIONS: 1. Colchicine 0.6 mg 2 times a day for one more week. 2. Patient has been advised to take prednisone 10 mg on December 11 and step down to 5 mg daily starting December 13, 2019. Otherwise, no change was made to his pre-admission home medications. HOSPITAL COURSE: Mr. Lin is a pleasant 79-year-old gentleman, who was admitted to [facility] on December 07, 2019, for suspected cellulitis and sepsis. He was seen by Infectious Diseases Service. He was initially treated with intravenous antibiotics. X-ray of the hand showed degenerative joint changes. It was felt that his presentation was secondary to gout flare. He was started on colchicine and antibiotics were discontinued. He improved clinically. He is being discharged home in a stable condition. At the time of this dictation, preliminary blood cultures are negative. Patient is advised to follow up with primary care provider for final blood culture results. DIET: Regular. ACTIVITY: No restrictions. POSTACUTE CARE FOLLOWUP: With primary care provider in 3 days. DISCHARGE DESTINATION: Home. TIME SPENT: Total amount of time spent coordinating this discharge: Thirty-two minutes. Job ID: [id number]
[2019-12-13] MEDS ORDERED: predniSONE 5 MG TAB PO SCH (08:00)
== END 2019-12-11 14:59 | disposition home or self-care (01) | DRG 554 ==
LOC: ERS 14:32 → T4-A 17:48
PROVIDERS: ADMIT Internal Medicine; ATTEND Internal Medicine
DX: M10.042 Idiopathic gout, left hand (principal); N17.9 Acute kidney failure, unspecified; E87.2 Acidosis; N18.2 Chronic kidney disease, stage 2 (mild); K21.9 Gastro-esophageal reflux disease without esophagitis; J44.9 Chronic obstructive pulmonary disease, unspecified; I12.9 Hypertensive chronic kidney disease with stage 1 through stage 4 chronic kidney disease, or unspecified chronic kidney disease; E66.9 Obesity, unspecified; N40.0 Benign prostatic hyperplasia without lower urinary tract symptoms; K59.00 Constipation, unspecified; D53.9 Nutritional anemia, unspecified; F41.9 Anxiety disorder, unspecified; Z68.30 Body mass index [BMI] 30.0-30.9, adult; Z90.49 Acquired absence of other specified parts of digestive tract; Z98.49 Cataract extraction status, unspecified eye; Z87.891 Personal history of nicotine dependence
CPT/HCPCS: 36415; 80048; 80053; 80202; 83605; 83735; 84550; 85025; 85610; 86140; 87040; 94640; 96365; 96367; J0692; J2405; J3370; J3490; J7030; J7050; J7512; J7620

== ENCOUNTER 2019-12-30 09:45 | Outpatient (CLI) | payer MEDICARE ==
--- NOTE | 2019-12-30 10:11 | RAD ---
CHEST 2 VIEWS: Date: 12/30/2019 HISTORY: Dyspnea. COMPARISON: 08/31/2019. FINDINGS: Hyperinflation and chronic lung changes with some flattening of the hemidiaphragms. No focal mass or confluent parenchymal change. No pleural effusion. No cardiomegaly. IMPRESSION: Stable hyperinflation and chronic changes. Atherosclerosis of aorta. POS: [facility]
== END 2019-12-30 09:46 | disposition home or self-care (01) ==
LOC: BICRAD 09:45
PROVIDERS: ATTEND Internal Medicine Critical Care Medicine
DX: R06.00 Dyspnea, unspecified (principal); I70.0 Atherosclerosis of aorta; J98.4 Other disorders of lung
CPT/HCPCS: 71046

== ENCOUNTER 2020-03-14 07:23 | Day surgery (SDC) | payer MEDICARE ==
[2020-03-11 09:56] VITALS: BMI 30.4
[2020-03-14] MEDS ORDERED: Sodium Chloride 0.9% 100 ML ONE (07:50)
[2020-03-14] MEDS ORDERED: cefTRIAXone\\ROCEPHIN 2 GM VIAL ONE (07:50)
[2020-03-14] MEDS ORDERED: PHENYLEPHRINE-NS 100 MCG/ML 10 ML SYRINGE ONE (09:27)
[2020-03-14] MEDS ORDERED: Glycopyrrolate 0.2 MG/ML 5 ML SYRINGE ONE (09:27)
[2020-03-14] MEDS ORDERED: Rocuronium Bromide 10 MG/ML (10ML VIAL) ONE (09:27)
[2020-03-14] MEDS ORDERED: PROPOFOL 200 MG/20 ML VIAL ONE (09:27)
[2020-03-14] MEDS ORDERED: Ondansetron PF 4 MG/2 ML Vial ONE (09:27)
[2020-03-14] MEDS ORDERED: Lidocaine 1% PF 5 ML VIAL ONE (09:27)
[2020-03-14] MEDS ORDERED: Iothalamate Meglumine 60% 50 ML VIAL FS ONE (09:53)
[2020-03-14] MEDS ORDERED: Midazolam HCl 2 mg/2 ml Vial ONE (09:55)
[2020-03-14] MEDS ORDERED: Fentanyl 100 MCG/2 ML VIAL ONE (09:55)
[2020-03-14] MEDS ORDERED: Methylene Blue 50 MG/10 ML AMPUL ONE (10:58)
--- NOTE | 2020-03-15 10:57 | OP ---
DATE OF PROCEDURE: 03/14/2020 PREOPERATIVE DIAGNOSIS: Bladder tumor. POSTOPERATIVE DIAGNOSIS: Bladder tumor. PROCEDURE PERFORMED: Cysto, transurethral resection of bladder tumor. ANESTHETIC: General. ESTIMATED BLOOD LOSS: 75 to 100 mL. DRAINS PLACED: A 20-Australian Shah catheter with about 20 mL in balloon. Mitomycin-C 40 mg was also placed intravascularly at the end of the case. INDICATIONS FOR SURGERY: This is an 80-year-old white male with gross hematuria. He was found on CT scan to have a very large left-sided bladder tumor. Office cysto showed it to be a bladder tumor. It looked like the left ureteral orifice was adjacent to it, but not being involved by it. He is coming in now for TURBT. He is a little anemic and his creatinine is 1.5, but otherwise his preoperative blood work is normal. DESCRIPTION OF PROCEDURE: After obtaining written and verbal consent from the patient and after receiving IV Rocephin, he was taken to the operating suite. He was placed in a supine position on the treatment table. PlexiPulses were placed on his lower extremities and turned on. He was given a general anesthetic and oral obturator intubation. He was placed in the dorsal lithotomy position. He was sterilely prepped and draped. Cystoscopy was performed with a 22-Australian sheath. This was passed, well lubricated through the male urethra into the urinary bladder and the bladder was filled and emptied and drained a number of times. This was examined with both the 30-degree and the 70-degree lens. The findings are as above. At this point, the instruments were removed. An [employer] resectoscope with visual obturator was passed through the male urethra into the bladder. The obturator was removed and the resectoscope with generator set up. Using a 30-degree lens and video camera and monitor, we resected this tumor down, so it was level with the bladder wall. It was not really on a stalk. It was actually a fairly wide base to it. We this out, sent it off as superficial, controlled hemostasis with electrocautery unit. It was not involving the left ureteral orifice. We did some deep bites through this and we sent these off as deep and then cauterized this area. The patient had been given some indigo carmine and there was blue efflux from both the left and the right ureteral orifice. At this point, there was good hemostasis. A Shah catheter was placed. The urine was clear. Bimanual exam did not reveal a three-dimensional mass in the urinary bladder. Mitomycin was then placed and the catheter plugged and he was taken out of the dorsal lithotomy position, awakened, extubated, and taken by stretcher to recovery room. Job ID: [id number]
== END 2020-03-14 13:45 | disposition home or self-care (01) ==
LOC: SDC 07:23
PROVIDERS: ATTEND Urology
PROC: 0T5B8ZZ Destruction of Bladder, Via Natural or Artificial Opening Endoscopic (ICD-10-PCS; principal; 2020-03-14)
DX: C67.2 Malignant neoplasm of lateral wall of bladder (principal); D64.9 Anemia, unspecified; J44.9 Chronic obstructive pulmonary disease, unspecified; M10.9 Gout, unspecified; Z79.52 Long term (current) use of systemic steroids; Z79.82 Long term (current) use of aspirin; Z79.899 Other long term (current) drug therapy
CPT/HCPCS: 52240; J9280; Q9968; 76000; 88307; J0696; J2250; J2405; J2704; J3010; J3490